=== PATIENT | male | born 1970 | race African-American/Black ===

== ENCOUNTER 2016-10-21 18:11 | Inpatient (IN) | payer MEDICAID ==
[~2016-10-21] VITALS: Ht 177.8 cm; Wt 115.9 kg
--- NOTE | 2016-10-21 18:49 | ERA ---
ER Documentation Chief Complaint Date/Time DATE: 10/21/16 TIME: 18:48 Chief Complaint sent by pcp -pain on both lower extremities- for blood clots HPI 46-year-old male with history of diabetes, hypertension and pneumonia ambulatory to the ED complaining of increasing pain and swelling to left greater than right lower extremity since discharge from [facility] approximately a month ago where he was treated for pneumonia. Pain is moderate , pressure-like, sharp, nonradiating and exacerbated by walking and movement. No relieving factors. Patient was seen by Dr. Mann and referred to the ED for evaluation and management of DVT to the left lower extremity. He requested that after evaluation, if indicated, patient be admitted to Dr. Natalya Ulrich. Patient denies chest pain or palpitations. No shortness of breath, cough or hemoptysis. Exertional dyspnea but no PND or orthopnea. Denies abdominal pain, nausea or vomiting. No dysuria or polyuria. No skin bruising or ecchymoses. No fevers or chills. ROS All systems reviewed and are negative except as per history of present illness. Medications Home Meds Reported Medications Ferrous Sulfate* (Ferrous Sulfate*) 325 Mg Tabec, 325 MG PO DAILY, TAB 10/21/16 Insulin Glargine* (Lantus*) 100 Unit/Ml Soln, 25 UNIT SC QHS, #1 VIAL 10/21/16 Lisinopril* (Lisinopril*) 20 Mg Tablet, 20 MG PO DAILY, #30 TAB 10/21/16 Aspirin* (Aspirin* EC) 81 Mg Tablet.dr, 81 MG PO DAILY, TAB 10/21/16 Carvedilol* (Carvedilol*) 12.5 Mg Tablet, 12.5 MG PO BID, #60 TAB 10/21/16 Folic Acid* (Folic Acid*) 1 Mg Tablet, 1 MG PO DAILY, TAB 10/21/16 Citalopram Hydrobromide* (Celexa*) 20 Mg Tablet, 20 MG PO DAILY, #30 TAB 10/21/16 Gabapentin* (Gabapentin*) 600 Mg Tablet, 600 MG PO TID, #90 TAB 10/21/16 Allergies Allergies: Coded Allergies: No Known Allergy (Unverified , 10/22/16) PMhx/Soc Reviewed in chart. As per HPI. Hx Neurological Disorder: No Hx Respiratory Disorders: Yes (Pneumonia) Hx Cardiac Disorders: Yes (Hypertension) Hx Psychiatric Problems: No Hx Alcohol Use: Yes Hx Substance Use: No Hx Tobacco Use: Yes Smoking Status: Current every day smoker FmHx No stroke or cancer Physical Exam Vitals Vital Signs Date Time Temp Pulse Resp B/P Pulse Ox O2 Delivery O2 Flow Rate FiO2 10/21/16 19:56 84 20 178/100 10/21/16 19:00 98.2 88 22 186/102 10/21/16 18:22 98.5 90 19 178/93 98 Physical Exam Const: Alert, mild distress due to pain. Head: Atraumatic Eyes: Normal Conjunctiva ENT: Normal External Ears, Nose and Mouth. Neck: Full range of motion.Nontender. No JVD. Resp: Clear to auscultation bilaterally Cardio: Regular rate and rhythm, no murmurs Abd: Soft, non tender, non distended. Normal bowel sounds. Obese. Skin: No petechiae or rashes Back: No midline or flank tenderness Ext: Left greater than right lower extremity edema and calf tenderness. Neur: Awake and alert. No focal deficit observed. Psych: Normal Mood and Affect Result Diagram: 10/23/16 0512 10/23/16 0512 Results 24 hrs Laboratory Tests Test 10/21/16 19:40 10/21/16 21:04 White Blood Count 8.310^3/ul Red Blood Count 2.7510^6/ul Hemoglobin 8.0g/dl Hematocrit 26.3% Mean Corpuscular Volume 95.6fl Mean Corpuscular Hemoglobin 29.1pg Mean Corpuscular Hemoglobin Concent 30.4g/dl Red Cell Distribution Width 13.3% Platelet Count 74139^3/UL Mean Platelet Volume 8.4fl Neutrophils % 57.4% Lymphocytes % 34.1% Monocytes % 6.2% Eosinophils % 1.3% Basophils % 0.5% Nucleated Red Blood Cells % 0.0/100WBC Neutrophils # 4.810^3/ul Lymphocytes # 2.810^3/ul Monocytes # 0.510^3/ul Eosinophils # 0.110^3/ul Basophils # 0.010^3/ul Nucleated Red Blood Cells # 0.010^3/ul Prothrombin Time 12.6Sec Prothrombin Time Ratio 1.0 INR International Normalized Ratio 0.94 Activated Partial Thromboplast Time 30.8Sec Sodium Level 138mmol/L Potassium Level 4.8mmol/L Chloride Level 107mmol/L Carbon Dioxide Level 27mmol/L Anion Gap 9 Blood Urea Nitrogen 23mg/dl Creatinine 2.25mg/dl Glucose Level 190mg/dl Calcium Level 7.7mg/dl Total Bilirubin 0.1mg/dl Direct Bilirubin 0.00mg/dl Indirect Bilirubin 0.1mg/dl Aspartate Amino Transf (AST/SGOT) 26IU/L Alanine Aminotransferase (ALT/SGPT) 26IU/L Alkaline Phosphatase 140IU/L Total Protein 5.1g/dl Albumin 2.2g/dl Globulin 2.90g/dl Albumin/Globulin Ratio 0.75 Bedside Glucose 170mg/dL Current Medications Medications (Trade) Dose Ordered Sig/Kavon Route PRN Reason Start Time Stop Time Status Last Admin Dose Admin Hydromorphone HCl (Dilaudid) 1 mg ONCE STAT IV 10/21/16 19:26 10/21/16 19:27 DC 10/21/16 19:45 Furosemide (Lasix) 40 mg ONCE ONCE IV 10/21/16 21:00 10/21/16 21:01 DC 10/21/16 22:13 Amlodipine Besylate (Norvasc) 10 mg DAILY PO 10/21/16 21:30 10/23/16 08:09 Hydralazine HCl (Apresoline) 10 mg Q4H PRN IV SBP>150 mm Hg 10/21/16 21:30 10/22/16 00:29 IV Flush (NS 3 ml) 3 ml PER PROTOCOL IV 10/21/16 21:30 Ondansetron HCl (Zofran Inj) 4 mg Q4H PRN IV NAUSEA AND/OR VOMITING 10/21/16 21:30 Acetaminophen (Tylenol Tab) 650 mg Q6H PRN PO PAIN LEVEL 1-3 OR FEVER 10/21/16 21:30 Acetaminophen/ Hydrocodone Bitart ([place] (5/325)) 1 tab Q6H PRN PO MODERATE PAIN LEVEL 4-6 10/21/16 21:30 Hydromorphone HCl (Dilaudid) 1 mg Q4H PRN IV SEVERE PAIN LEVEL 7-10 10/21/16 21:30 10/23/16 08:15 Docusate Sodium (Colace) 100 mg Q12H PRN PO CONSTIPATION 10/21/16 21:30 Magnesium Hydroxide (Milk Of Mag) 30 ml DAILY PRN PO CONSTIPATION 10/21/16 21:30 Bisacodyl (Dulcolax) 5 mg DAILY PRN PO CONSTIPATION 10/21/16 21:30 Bisacodyl (Dulcolax Supp) 10 mg DAILY PRN MS CONSTIPATION 10/21/16 21:30 Sodium Biphosphate/ Sodium Phosphate (Fleet Enema) 133 ml DAILY PRN MS CONSTIPATION 10/21/16 21:30 Zolpidem Tartrate (Ambien) 5 mg QHS PRN PO SLEEP 10/21/16 21:30 Miscellaneous Information (* Miscellaneous Pharmacy Order) HYPOGLYCEMIA PROTOCOL w... ONCE ONCE XX 10/21/16 21:30 10/21/16 22:23 DC Miscellaneous Information (* Miscellaneous Pharmacy Order) Discontinue Glyburide, Glipizide,... ONCE ONCE XX 10/21/16 21:30 10/21/16 22:23 DC Miscellaneous Information (* Miscellaneous Pharmacy Order) Discontinue all previ... ONCE ONCE XX 10/21/16 21:30 10/21/16 22:23 DC Albuterol/ Ipratropium (Duoneb) 3 ml Q2H RESP THERAPY PRN HHN SHORTNESS OF BREATH 10/21/16 21:30 EKG: TIME: 20:01. Sinus rhythm. Ventricular rate 84. Normal MS QRS. No acute ST-T wave changes. No ectopy. EP Interpretation: Normal EKG. IMAGING: PROCEDURE: US bilateral lower extremity veins. CLINICAL INDICATION: Bilateral leg pain and swelling. TECHNIQUE: Multiple longitudinal and transverse images of the bilateral lower extremity veins were obtained with king scale and color Doppler imaging. The common femoral vein, femoral vein, and popliteal vein were evaluated. 2D grayscale measurements with compression sonography, color Doppler, and pulsed Doppler with augmentation. COMPARISON: No prior studies are available for comparison. FINDINGS: The bilateral common femoral, femoral and popliteal veins are normally compressible throughout. Color flow demonstrates normal filling of the vessels. Normal waveforms are visualized and there is normal response to augmentation. There is thrombus in the left posterior tibial vein, a calf vein. IMPRESSION: 1. Thrombus in the left posterior tibial vein, a calf vein. 2. Otherwise normal deep venous system of both lower extremities. 3. Follow-up left lower extremity venous Doppler in 5 days is advised to evaluate for potential cephalad propagation of thrombus. RPTAT: QQ .Helder Lopez MD, Date Time Electronically viewed and signed by .Helder Lopez MD, on 10/21/2016 19:42 .R/ PROCEDURE: XR Chest. CLINICAL INDICATION: Shortness of breath. TECHNIQUE: Single frontal view. COMPARISON: None. FINDINGS: The lungs are clear. The heart size is normal. There is no pleural effusion. There is no pneumothorax. IMPRESSION: 1. Normal chest radiograph. RPTAT: QQ .Helder Lopez MD, Date Time Electronically viewed and signed by .Helder Lopez MD, on 10/21/2016 19:14 .R/ Procedures/MDM DOCUMENTS REVIEWED: ED nurse, no prior records MED[employer] DECISION MAKIN-year-old male with history of diabetes, hypertension and pneumonia ambulatory to the ED complaining of increasing pain and swelling to left greater than right lower extremity since discharge from [facility] approximately a month ago where he was treated for pneumonia. 2+ lower extremity edema and acute renal failure but chest x-ray is unremarkable. CHF considered. Hypertensive emergency. Anemia without active bleeding. Dupplex reveal a thrombus in the left posterior tibial vein. Diuretics initiated. Admit to med/surg for further evaluation and management. Counseled patient regarding diagnosis, diagnostic results and plan for admission. CALLS/CONSULTS: Time 21:00, Dr. Darya Ulrich , Recommends admission to med/surg. PATIENT CARE TRANSITIONED: Time: 21:45, Dr.K Ulrcih. Departure Diagnosis: Primary Impression: Lower extremity edema Qualified Code: R60.0 - Bilateral edema of lower extremity Additional Impressions: Lower extremity pain Qualified Code: M79.604 - Pain in both lower extremities Hypertensive emergency Acute renal failure Qualified Code: N17.9 - Acute renal failure, unspecified acute renal failure type Diabetes mellitus type 2 in obese Acute deep vein thrombosis (DVT) Qualified Code: I82.402 - Acute deep vein thrombosis (DVT) of left lower extremity, unspecified vein Condition: Serious BRISEIDA FONTENOT MD Oct 21, 2016 18:49 common femoral vein, femoral vein, and popliteal vein were evaluated. 2D grayscale measurements with compression sonography, color Doppler, and pulsed Doppler with augmentation. COMPARISON: No prior studies are available for comparison. FINDINGS: The bilateral common femoral, femoral and popliteal veins are normally compressible throughout. Color flow demonstrates normal filling of the vessels. Normal waveforms are visualized and there is normal response to augmentation. There is thrombus in the left posterior tibial vein, a calf vein. IMPRESSION: 1. Thrombus in the left posterior tibial vein, a calf vein. 2. Otherwise normal deep venous system of both lower extremities. 3. Follow-up left lower extremity venous Doppler in 5 days is advised to evaluate for potential cephalad propagation of thrombus. RPTAT: QQ .Helder Lopez MD, Date Time Electronically viewed and signed by .Helder Lopez MD, MD on 10/21/2016 19:42 .R/ PROCEDURE: XR Chest. CLINICAL INDICATION: Shortness of breath. TECHNIQUE: Single frontal view. COMPARISON: None. FINDINGS: The lungs are clear. The heart size is normal. There is no pleural effusion. There is no pneumothorax. IMPRESSION: 1. Normal chest radiograph. RPTAT: QQ .Helder Lopez MD, Date Time Electronically viewed and signed by .Helder Lopez MD, on 10/21/2016 19:14 .R/ Procedures/MDM DOCUMENTS REVIEWED: ED nurse, no prior records PROCEDURES: [] ED COURSE: [] REEXAMINATION/REEVALUATION: Time:[] MEDICAL DECISION MAKIN-year-old male with history of diabetes, hypertension and pneumonia ambulatory to the ED complaining of increasing pain and swelling to left greater than right lower extremity since discharge from [facility] approximately a month ago where he was treated for pneumonia. Counseled [patient and family] regarding diagnosis, diagnostic results and plan for admission. CALLS/CONSULTS: Time[], [], Recommends []. PATIENT CARE TRANSITIONED: Time: []Dr. []. Departure Diagnosis: Primary Impression: Acute deep vein thrombosis (DVT) BRISEIDA FONTENOT MD Oct 21, 2016 18:49
--- NOTE | 2016-10-21 19:15 | RADRPT ---
PROCEDURE: XR Chest. CLINICAL INDICATION: Shortness of breath. TECHNIQUE: Single frontal view. COMPARISON: None. FINDINGS: The lungs are clear. The heart size is normal. There is no pleural effusion. There is no pneumothorax. IMPRESSION: 1. Normal chest radiograph. RPTAT: QQ .Helder Lopez MD, MD Date Time Electronically viewed and signed by .Helder Lopez MD, on 10/21/2016 19:14 .R/
[2016-10-21] MEDS ORDERED: HYDROmorphONE 1 MG/ML SYG IV STA (19:26)
--- NOTE | 2016-10-21 19:42 | RADRPT ---
PROCEDURE: US bilateral lower extremity veins. CLINICAL INDICATION: Bilateral leg pain and swelling. TECHNIQUE: Multiple longitudinal and transverse images of the bilateral lower extremity veins were obtained with king scale and color Doppler imaging. The common femoral vein, femoral vein, and popl iteal vein were evaluated. 2D grayscale measurements with compression sonography, color Doppler, and pulsed Doppler with augmentation. COMPARISON: No prior studies are available for comparison. FINDINGS: The bilateral common femoral, femoral and popliteal veins are normally compressible throughout. Col or flow demonstrates normal filling of the vessels. Normal waveforms are visualized and there is no rmal response to augmentation. There is thrombus in the left posterior tibial vein, a calf vein. IMPRESSION: 1. Thrombus in the left posterior tibial vein, a calf vein. 2. Otherwise normal deep venous system of both lower extremities. 3. Follow-up left lower extremity venous Doppler in 5 days is advised to evaluate for potential cep halad propagation of thrombus. RPTAT: QQ .Helder Lopez MD, MD Date Time Electronically viewed and signed by .Helder Lopez MD, on 10/21/2016 19:42 .R/
[2016-10-21 19:48] LABS: ADD SCAN DIFF NO
[2016-10-21 19:51] LABS: BASOPHILS % 0.5 % (0.0-2.0); EOSINOPHILS # 0.1 10^3/ul (0.0-0.5); EOSINOPHILS % 1.3 % (0.0-7.0); HEMATOCRIT 26.3 % (42.0-52.0); LYMPHOCYTES # 2.8 10^3/ul (0.8-2.9); LYMPHOCYTES % 34.1 % (15.0-51.0); MEAN CORPUSCULAR HEMOGLOBIN 29.1 pg (29.0-33.0); MEAN CORPUSCULAR HGB CONC 30.4 g/dl (32.0-37.0); MEAN CORPUSCULAR VOLUME 95.6 fl (82.0-101.0); MEAN PLATELET VOLUME 8.4 fl (7.4-10.4); MONOCYTE # 0.5 10^3/ul (0.3-0.9); MONOCYTES % 6.2 % (0.0-11.0); NEUTROPHIL # 4.8 10^3/ul (1.6-7.5); NEUTROPHILS % 57.4 % (39.0-77.0); PLATELET COUNT 329 10^3/UL (140-415); RED BLOOD COUNT 2.75 10^6/ul (4.70-6.10); RED CELL DISTRIBUTION WIDTH 13.3 % (11.5-14.5); WHITE BLOOD COUNT 8.3 10^3/ul (4.8-10.8)
[2016-10-21 20:03] LABS: INR 0.94; PROTIME 12.6 Sec (12.2-14.2)
[2016-10-21 20:04] LABS: PARTIAL THROMBOPLASTIN TIME 30.8 Sec (25.0-35.0)
[2016-10-21 20:17] LABS: ALBUMIN 2.2 g/dl (3.3-4.9)
[2016-10-21 20:18] LABS: POTASSIUM 4.8 mmol/L (3.5-5.1)
[2016-10-21 20:20] LABS: BILIRUBIN,INDIRECT 0.1 mg/dl (0-1.1); BILIRUBIN,TOTAL 0.1 mg/dl (0.2-1.3); CREATININE 2.25 mg/dl (0.61-1.24)
[2016-10-21 20:21] LABS: ALBUMIN/GLOBULIN RATIO 0.75; CALCIUM 7.7 mg/dl (8.4-10.2); TOTAL PROTEIN 5.1 g/dl (6.1-8.1)
[2016-10-21] MEDS ORDERED: CITA20TA11 PO (20:43)
[2016-10-21] MEDS ORDERED: GABA-526 PO (20:43)
[2016-10-21] MEDS ORDERED: ASPI-664 PO (20:44)
[2016-10-21] MEDS ORDERED: FOLI-49 PO (20:44)
[2016-10-21] MEDS ORDERED: CARV12.579 PO (20:44)
[2016-10-21] MEDS ORDERED: LANT3I SC (20:45)
[2016-10-21] MEDS ORDERED: LISI20TA11 PO (20:45)
[2016-10-21] MEDS ORDERED: FER325 PO (20:48)
[2016-10-21] MEDS ORDERED: FUROSEMIDE 40 MG INJ IV ONE (21:00)
[2016-10-21] MEDS ORDERED: ACETAMINOPHEN 325 MG TAB PO PRN ×2 (21:30→22:30)
[2016-10-21] MEDS ORDERED: BISACODYL (EC) 5 MG TAB PO PRN (21:30)
[2016-10-21] MEDS ORDERED: NA PHOSPHATE/BIPHOS 133 ML ENEMA PR PRN (21:30)
[2016-10-21] MEDS ORDERED: BISACODYL 10 MG SUPP PR PRN (21:30)
[2016-10-21] MEDS ORDERED: MAGNESIUM HYDROXIDE 30ML CUP PO PRN (21:30)
[2016-10-21] MEDS ORDERED: ALBUTEROL/IPRATROPIUM (NEB) 3 ML AMP HHN PRN (21:30)
[2016-10-21] MEDS ORDERED: NACL 0.9% 3 ML SYG IV SCH (21:30)
[2016-10-21] MEDS ORDERED: ONDANSETRON 4 MG INJ IV PRN ×2 (21:30→22:30)
[2016-10-21] MEDS ORDERED: ZOLPIDEM 5 MG TAB PO PRN (21:30)
--- NOTE | 2016-10-21 22:20 | RADRPT ---
PROCEDURE: Renal US. CLINICAL INDICATION: Acute renal failure. TECHNIQUE: Multiple sonographic images of the kidneys and urinary bladder were obtained. The imag es were reviewed on a PACS workstation. COMPARISON: No prior studies are available for comparison. FINDINGS: The kidneys are well visualized. The right kidney measures 10.9 cm. The left kidney measures 9.6 cm. The kidneys are echogenic. There is no evidence for obstructive uropathy. The urinary bladder is no rmal in appearance. IMPRESSION: 1. Echogenic kidneys, suggestive of medical renal disease. 2. No hydronephrosis. 3. Normal appearance of the urinary bladder. RPTAT: HTAR .Ha Heard MD, Date Time Electronically viewed and signed by .Ha Heard MD, on 10/21/2016 22:20 .R/
[2016-10-21] MEDS: INSULIN GLARGINE [LANtus] 3 ML PEN SC SCH (22:30)
[2016-10-21] MEDS: AMLODIPINE 10 MG TAB PO SCH (22:37)
[2016-10-21] MEDS: GABAPENTIN 300 MG CAP PO SCH (22:38)
[2016-10-21] MEDS: HEPARIN 5,000 UNIT/0.5 ML SYG SC SCH (22:38)
[2016-10-21 23:38] VITALS: TEMP 98.1
[2016-10-22 00:03] VITALS: Ht 177.8 cm; Wt 115.9 kg
[2016-10-22 00:06] VITALS: BP 181/97; RESP 16
[2016-10-22] MEDS: hydrALAzine 20 MG INJ IV PRN (00:29)
[2016-10-22 00:54] VITALS: BP 164/90; PULSE 77
[2016-10-22 04:09] VITALS: BP 158/72; PULSE 78
[2016-10-22] MEDS: HYDROmorphONE 1 MG/ML SYG IV PRN ×2 (05:42→18:51)
[2016-10-22] MEDS: FUROSEMIDE 20 MG INJ IV SCH ×2 (05:44→18:06)
[2016-10-22 06:27] LABS: ADD SCAN DIFF NO
[2016-10-22 06:41] LABS: BASOPHILS % 0.7 % (0.0-2.0); EOSINOPHILS # 0.1 10^3/ul (0.0-0.5); EOSINOPHILS % 1.7 % (0.0-7.0); HEMATOCRIT 26.4 % (42.0-52.0); HEMOGLOBIN 7.9 g/dl (14.0-18.0); LYMPHOCYTES # 2.3 10^3/ul (0.8-2.9); LYMPHOCYTES % 39.6 % (15.0-51.0); MEAN CORPUSCULAR HEMOGLOBIN 28.6 pg (29.0-33.0); MEAN CORPUSCULAR HGB CONC 29.9 g/dl (32.0-37.0); MEAN CORPUSCULAR VOLUME 95.7 fl (82.0-101.0); MEAN PLATELET VOLUME 8.9 fl (7.4-10.4); MONOCYTE # 0.4 10^3/ul (0.3-0.9); MONOCYTES % 6.9 % (0.0-11.0); NEUTROPHIL # 2.9 10^3/ul (1.6-7.5); NEUTROPHILS % 50.9 % (39.0-77.0); PLATELET COUNT 339 10^3/UL (140-415); RED BLOOD COUNT 2.76 10^6/ul (4.70-6.10); RED CELL DISTRIBUTION WIDTH 13.3 % (11.5-14.5); WHITE BLOOD COUNT 5.8 10^3/ul (4.8-10.8)
[2016-10-22 07:14] LABS: POTASSIUM 4.8 mmol/L (3.5-5.1)
[2016-10-22 07:15] LABS: CREATININE 2.19 mg/dl (0.61-1.24)
[2016-10-22 07:16] LABS: ALBUMIN/GLOBULIN RATIO 0.74; BILIRUBIN,INDIRECT 0.2 mg/dl (0-1.1); BILIRUBIN,TOTAL 0.2 mg/dl (0.2-1.3); CALCIUM 7.8 mg/dl (8.4-10.2); TOTAL PROTEIN 4.7 g/dl (6.1-8.1)
[2016-10-22 07:17] LABS: CHOL/HDL RATIO 5.7 RATIO; MAGNESIUM 1.6 mg/dl (1.7-2.5)
[2016-10-22 07:27] VITALS: BP 148/74; RESP 16
[2016-10-22] MEDS: CITALOPRAM 20 MG TAB PO SCH (08:32)
[2016-10-22] MEDS: ASPIRIN (EC) 81 MG TAB PO SCH (08:32)
[2016-10-22] MEDS: GABAPENTIN 300 MG CAP PO SCH ×3 (08:32→21:08)
[2016-10-22] MEDS: FOLIC ACID 1 MG TAB PO SCH (08:32)
[2016-10-22] MEDS: FERROUS SULFATE (EC) 325 MG TAB PO SCH (08:32)
[2016-10-22] MEDS: AMLODIPINE 10 MG TAB PO SCH (08:34)
[2016-10-22] MEDS: HEPARIN 5,000 UNIT/0.5 ML SYG SC SCH ×2 (08:46→21:18)
[2016-10-22] MEDS ORDERED: FAMOTIDINE 20 MG INJ IV SCH (09:00)
[2016-10-22] MEDS: INSULIN ASPART [NOVOLOG] 3 ML PEN SC SCH ×4 (09:02→21:17)
[2016-10-22 10:54] LABS: RETICULOCYTE COUNT % 2.8 % (0.5-1.5)
[2016-10-22 11:04] LABS: CREATINE KINASE 111 IU/L (23-200); URIC ACID 7.2 mg/dl (3.1-7.9)
[2016-10-22 11:10] LABS: IRON 35 ug/dl (35-150)
[2016-10-22 11:20] LABS: TOTAL IRON BINDING CAPACITY 162 ug/dl (241-421)
[2016-10-22 12:17] LABS: FOLATE > 20.0 ng/ml (2.8-20.0)
[2016-10-22 12:45] LABS: PROTEIN URINE > 200.0 mg/dl (0.0-9.9); PROTEIN/CREAT RATIO 3.46 RATIO
--- NOTE | 2016-10-22 15:52 | HP ---
DATE OF ADMISSION: 10/21/2016 CHIEF COMPLAINT: Bilateral lower extremity pain with history of DVT. HISTORY OF PRESENT ILLNESS: The patient is a very pleasant 46-year-old male with p ast medical history positive for hypertension, diabetes, hyperlipidemia. The patient was following with Dr. Garcia, vaccine customer representative, and was found to have elevated systolic blood pressure in 200s and als o elevated creatinine. Patient complained of bilateral lower extremities edema and pain. The patie nt was sent to [facility]. The patient complains of a pressure-lik e, sharp, nonradiating pain in bilateral lower extremity exacerbated by walking and movement. The abhishek queen also had a history of pneumonia and was [place] [facility] stated that he completed treatment for pneumonia. The patient also stated that he is diabetic and he takes Lantus, does not remember to exact dose and Humalog per sliding scale. The patient stated that he h as been compliant with his medications. In the emergency room, patient underwent bilateral lower ex tremity ultrasound which revealed thrombus in the left posterior tibial vein, otherwise, normal deep venous system of both lower extremities. Follow up left lower extremity venous Doppler in 5 days i s advised to evaluate for potential ____ propagation of thrombus. Patient was getting Dilaudid, [place] with some improvement in symptoms. The patient also noted to have blood pressure 186/102 on admi ssion. The patient was admitted for further evaluation and management to medical/surgical floor. Abhishek queen denies any fever or chills. Denies any nausea, vomiting. Patient denies any cough. Denies any sore throat. Denies dysuria; however, patient stated that his creatinine has been elevated abou t 2. PAST MEDICAL HISTORY: Per HPI. PAST SURGICAL HISTORY: Patient denies having any surgeries in the past. SOCIAL HISTORY: Patient denies any tobacco use, denies any alcohol use, denies any illicit drug use . FAMILY HISTORY: Noncontributory. ALLERGIES: NO KNOWN ALLERGIES. MEDICATIONS ON ADMISSION: Include: 1. Ferrous sulfate. 2. Lantus. 3. Lisinopril. 4. Aspirin. 5. Coreg. 6. Folic acid. 7. Celexa. 8. Gabapentin. REVIEW OF SYSTEMS: A 12-point review of systems is negative unless what mentioned in the HPI. PHYSICAL ASSESSMENT: GENERAL: Well-developed, obese male currently is awake, alert. VITAL SIGNS: Temperature is 98.1, pulse is 82, blood pressure is 148/74, respiratory rate 16, oxyge n saturation is 98% on room air. HEENT: Head is atraumatic, normocephalic. Pupils equal, round, reactive to light and accommodation . Oral mucosa is pink and moist. NECK: Supple, no cervical lymphadenopathy, no thyromegaly. CHEST: Lungs clear bilaterally. There is no rhonchi, wheezes, rales noted. CARDIOVASCULAR: Normal S1, S2. No murmurs, gallops, clicks, rubs noted. ABDOMEN: Round, soft, nondistended, nontender. Bowel sounds present. There is no guarding or rebo und tenderness. EXTREMITIES: The patient has bilateral lower extremities edema, 2+. The patient also has a left an terior foot intact blister. No rash, petechiae noted. NEUROLOGIC: Patient is awake, alert and oriented. SKIN: There is no rash, petechiae noted. NEUROLOGIC: The patient is awake, alert and oriented x4. No focal deficits noted. Motor strength 5/5 in all extremities. LABORATORY DATA: On admission, CBC: White blood cells 8.3, hemoglobin 8.0, hematocrit 26.3, platel ets 329. Chemistry: Sodium is 138, potassium 4.8, chloride 107, carbon dioxide 27, anion gap 9, BU N is 26, creatinine 2.23, glucose 190. ASSESSMENT AND PLAN: 1. Bilateral lower extremities edema. We will obtain a 2D echo and evaluation of patient's ejectio n fraction. Dr. Casey will be following patient in cardiology consultation. 2. Left posterior tibial vein thrombus. Continue warm compress. We will continue heparin. We will reevaluate left lower extremity ultrasound in 5 days. 3. Accelerated hypertension. Continue patient on Coreg, Norvasc, hydralazine. 4. Diabetes mellitus type 2. Continue 1800 ADA 2 g sodium, low fat, low cholesterol diet. Continu e Lantus and NovoLog per moderate algorithm sliding scale. We will obtain hemoglobin A1c. 5. Acute kidney injury on chronic kidney disease. Dr. Ulrich is following in nephrology consultatio n. 6. Obesity. Weight loss advised. 7. Iron deficiency anemia. Continue iron supplements. 8. We will continue heparin, follow deep venous thrombosis prophylaxis and Pepcid for peptic ulcer disease prophylaxis. Further recommendations based on clinical course. Plan of care discussed with Dr. Valiente. Dictated By: NI PADRON ADULT EDUCATION PROFESSIONAL for IKE VALIENTE MD SR/NTS Conf#: [id number] DID#: [id number]
--- NOTE | 2016-10-22 16:08 | PN ---
Date/Time of Note Date/Time of Note DATE: 10/22/16 TIME: 16:06 Assessment/Plan VTE Prophylaxis VTE Prophylaxis Intervention: heparin Lines/Catheters IV Catheter Type (from [facility]): [place] [facility] Assessment/Plan Assessment/Plan 1. Anasarca, likely secondary to worsening renal failure. 2. Acute kidney injury on chronic kidney disease secondary to prerenal azotemia and worsening diabetes mellitus. 3. Superficial vein thrombosis in left posterior tibial vein. 4. History of diabetes mellitus. 5. Hypertension with currently having accelerated hypertension, systolic blood pressure 186/103. PLAN: lasix 20mg IV BID Renal US Cardiology consulted on the case will follow up Exam/Review of Systems Vital Signs Vitals Vital Signs Date Time Temp Pulse Resp B/P Pulse Ox O2 Delivery O2 Flow Rate FiO2 10/22/16 07:27 98.0 80 16 148/74 98 Intake and Output 10/21/16 10/21/16 10/22/16 15:00 23:00 07:00 Intake Total 820 ml Output Total 1750 ml Balance -930 ml Exam GENERAL: Awake, alert, in moderate distress due to the lower extremity edema and shortness of breath. HEENT: Normal. Pupils equal, round, reactive to light and accommodation. Extraocular muscles are intact. NECK: Supple, no JVD, no lymphadenopathy. LUNGS: Clear to auscultation. No crackles, no wheezes. HEART: S1, S2, with regular rhythm, no murmur. ABDOMEN: Soft, nontender, nondistended. Bowel sounds are present. EXTREMITIES: 2+ pitting edema. No clubbing, no cyanosis. NEUROLOGICAL: Cranial nerves II through XII intact. No focal deficits. PSYCHIATRIC: Appropriate affect and mood. Results Result Diagram: 10/22/16 0600 10/22/16 0600 Results 24 hrs Laboratory Tests Test 10/21/16 19:40 10/21/16 21:04 10/22/16 00:13 10/22/16 06:00 White Blood Count 8.3 5.8 # Red Blood Count 2.75 L 2.76 L Hemoglobin 8.0 L 7.9 L Hematocrit 26.3 L 26.4 L Mean Corpuscular Volume 95.6 95.7 Mean Corpuscular Hemoglobin 29.1 28.6 L Mean Corpuscular Hemoglobin Concent 30.4 L 29.9 L Red Cell Distribution Width 13.3 13.3 Platelet Count 329 339 Mean Platelet Volume 8.4 8.9 Neutrophils % 57.4 50.9 Lymphocytes % 34.1 39.6 Monocytes % 6.2 6.9 Eosinophils % 1.3 1.7 Basophils % 0.5 0.7 Nucleated Red Blood Cells % 0.0 0.0 Neutrophils # 4.8 2.9 Lymphocytes # 2.8 2.3 Monocytes # 0.5 0.4 Eosinophils # 0.1 0.1 Basophils # 0.0 0.0 Nucleated Red Blood Cells # 0.0 0.0 Prothrombin Time 12.6 Prothrombin Time Ratio 1.0 INR International Normalized Ratio 0.94 Activated Partial Thromboplast Time 30.8 Sodium Level 138 140 Potassium Level 4.8 4.8 Chloride Level 107 108 Carbon Dioxide Level 27 28 Anion Gap 9 9 Blood Urea Nitrogen 23 H 22 H Creatinine 2.25 H 2.19 H Glucose Level 190 171 Calcium Level 7.7 L 7.8 L Total Bilirubin 0.1 L 0.2 Direct Bilirubin 0.00 0.00 Indirect Bilirubin 0.1 0.2 Aspartate Amino Transf (AST/SGOT) 26 24 Alanine Aminotransferase (ALT/SGPT) 26 23 Alkaline Phosphatase 140 H 120 Total Protein 5.1 L 4.7 L Albumin 2.2 L 2.0 L Globulin 2.90 2.70 Albumin/Globulin Ratio 0.75 0.74 Bedside Glucose 170 152 Hemoglobin A1c 6.6 H Magnesium Level 1.6 L Triglycerides Level 114 Cholesterol Level 318 H LDL Cholesterol, Calculated 240 HDL Cholesterol 55 Cholesterol/HDL Ratio 5.7 Test 10/22/16 07:57 10/22/16 10:06 10/22/16 10:15 10/22/16 11:48 Bedside Glucose 213 183 Absolute Reticulocyte Count 0.073 Percent Reticulocyte Count 2.8 H Uric Acid 7.2 Iron Level 35 Total Iron Binding Capacity 162 L Percent Iron Saturation 22 Ferritin 372.0 Creatine Kinase 111 Vitamin B12 Level 303 Folate > 20.0 H Parathyroid Hormone (Intact) Urine Eosinophils % 7.0 H Urine Random Creatinine 57.70 Urine Random Sodium 114 H Urine Protein/Creatinine Ratio 3.46 Urine Total Protein > 200.0 H Medications Medications Current Medications Aspirin (Halfprin) 81 mg DAILY PO Last administered on 10/22/16t 08:32; Admin Dose 81 MG; Start 10/22/16 at 09:00 Carvedilol (Coreg) 12.5 mg BID PO Last administered on 10/22/16 08:33; Admin Dose 12.5 MG; Start 10/21/16 at 22:30 Citalopram Hydrobromide (Celexa) 20 mg DAILY PO Last administered on 10/22/16 08:32; Admin Dose 20 MG; Start 10/22/16 at 09:00 Ferrous Sulfate (Ferrous Sulfate (Ec)) 325 mg DAILY PO Last administered on 08:32; Admin Dose 325 MG; Start 10/22/16 at 09:00 Folic Acid (Folic Acid) 1 mg DAILY PO Last administered on 10/22/16 08:32; Admin Dose 1 MG; Start 10/22/16 at 09:00 Gabapentin (Neurontin) 600 mg TID PO Last administered on 10/22/16 12:20; Admin Dose 600 MG; Start 10/21/16 at 22:30 Amlodipine Besylate (Norvasc) 10 mg DAILY PO Last administered on 10/22/16 08: 34; Admin Dose 10 MG; Start 10/21/16 at 21:30 Hydralazine HCl (Apresoline) 10 mg Q4H PRN IV SBP>150 mm Hg Last administered on 10/22/16 00:29; Admin Dose 10 MG; Start 10/21/16 at 21:30 Insulin Glargine (Lantus) 10 unit QHS SC ; Start 10/21/16 at 22:30 Ondansetron HCl (Zofran Inj) 4 mg Q4H PRN IV NAUSEA AND/OR VOMITING; Start at 21:30 Acetaminophen (Tylenol Tab) 650 mg Q6H PRN PO PAIN LEVEL 1-3 OR FEVER; Start at 21:30 Acetaminophen/ Hydrocodone Bitart ([employer] (5/325)) 1 tab Q6H PRN PO MODERATE PAIN LEVEL 4-6; Start 10/21/16 at 21:30 Hydromorphone HCl (Dilaudid) 1 mg Q4H PRN IV SEVERE PAIN LEVEL 7-10 Last administered on 10/22/16 05:42; Admin Dose 1 MG; Start 10/21/16 at 21:30 Docusate Sodium (Colace) 100 mg Q12H PRN PO CONSTIPATION; Start 10/21/16 at 21: 30 Magnesium Hydroxide (Milk Of Mag) 30 ml DAILY PRN PO CONSTIPATION; Start at 21:30 Bisacodyl (Dulcolax) 5 mg DAILY PRN PO CONSTIPATION; Start 10/21/16 at 21:30 Bisacodyl (Dulcolax Supp) 10 mg DAILY PRN [place] CONSTIPATION; Start 10/21/16 at 21 :30 Sodium Biphosphate/ Sodium Phosphate (Fleet Enema) 133 ml DAILY PRN [place] CONSTIPATION; Start 10/21/16 at 21:30 Zolpidem Tartrate (Ambien) 5 mg QHS PRN PO SLEEP; Start 10/21/16 at 21:30 Heparin Sodium (Porcine) (Heparin (5000 Units/0.5 ml)) 5,000 unit Q12 SC Last administered on 10/22/16t 08:46; Admin Dose 5,000 UNIT; Start 10/21/16 at 22:30 Famotidine (Pepcid) 20 mg DAILY PO ; Start 10/23/16 at 09:00 EMILY OVIEDO MD Oct 22, 2016 16:08
[2016-10-22] MEDS ORDERED: MAGNESIUM SULFATE 1 GM/D5W 100 ML IVPB ONE (16:30)
--- NOTE | 2016-10-22 19:14 | CONS ---
DATE OF ADMISSION: 10/21/2016 DATE OF CONSULTATION: 10/22/2016 CARDIOLOGY CONSULTATION REASON FOR CONSULTATION: Hypertension, edema. REQUESTING PHYSICIAN: Ike Valiente MD HISTORY OF PRESENT ILLNESS: Mr. 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 The alisia parker subsequently was sent to the [facility] Emergency Department. Upon arrival, temperature 98.5, blood pressure markedly elevated at 178/93, pulse 90, respirations 19, saturating 98%. The patient's labs revealed white count 8.3, hemoglobin 8.0, platelet count 329. A sodium of 138, potassium 4.8, creatinine 2.25, BUN of 23, calcium 7.7, AST 26, ALT 26. INR 0.94. Urine sedim ent with positive protein. Patient does not have ____ the chart for my review at this time. The stella byrnes has been started on Carvedilol, aspirin, Lasix diuresis, Norvasc. Patient most recently jamar nues to have elevated systolic blood pressures but are slowly downtrending. The patient denies ches t pain, shortness of breath. PAST MEDICAL HISTORY: As above in HPI. MEDICATIONS CURRENTLY IN HOSPITAL: 1. Pepcid 20 mg daily. 2. Aspirin 81 mg daily. 3. Celexa. 4. Ferrous sulfate. 5. Folic acid. 6. ____ 7. Lasix 20 mg IV b.i.d. 8. Carvedilol 12.5 mg p.o. b.i.d. 9. Gabapentin 300 mg t.i.d. 10. Lantus 10 mg at bedtime. 11. Heparin 5000 subQ q.12. 12. Norvasc 10 mg daily. 13. Hydralazine 10 mg IV push p.r.n. 14. Zofran p.r.n. 15. Tylenol. 16. Puposky p.r.n. 17. Dilaudid p.r.n. 18. Dulcolax p.r.n. 19. Fleets enema p.r.n. ALLERGIES: NO KNOWN DRUG ALLERGIES. SOCIAL HISTORY: Remote tobacco, quit times multiple years. No ETOH, quit times multiple years. No illicit drug use. FAMILY HISTORY: Negative for sudden cardiac or early CAD. REVIEW OF SYSTEMS: As above in HPI. CONSTITUTIONAL: No fevers, chills. PULMONARY: No current shortness of breath. CARDIOVASCULAR: No current chest pain. GASTROINTESTINAL: No vomiting. GENITOURINARY: No hematuria. MUSCULOSKELETAL: Leg pain, leg swelling. PSYCHIATRIC: No documented psychiatric history. NEUROLOGIC: No documented history of CVA. PHYSICAL EXAMINATION: VITAL SIGNS: Temperature 98, blood pressure 148/74, pulse 80, respirations 16, saturating 98%. GENERAL: The patient is alert, awake, in no acute distress. NECK: JVP approximately 9 cm water. CHEST: Fair movement throughout with mildly decreased breath sounds at bases bilaterally. HEART: Regular rate and rhythm. Normal S1, S2, I/ systolic murmur, nondisplaced PMI. ABDOMEN: Positive bowel sounds, soft. EXTREMITIES: 2+ edema bilaterally, left greater than right, 1+ pulses bilaterally at the dorsalis p nicanor. LABORATORIES: As above in HPI, with most recent from today: White count 5.8, hemoglobin 7.9, plate let count 339. Sodium 140, potassium 4.8, creatinine 2.19, BUN 22. LDL 240, HDL 55. INR 0.94. IMAGING STUDIES: A venous ultrasound from the revealing thrombus in the left posterior tibial vein. A chest x-ray revealing no acute cardiopulmonary abnormalities and a renal ultrasound reveali ng echogenic kidneys consistent with medical renal disease. IMPRESSION: 1. Hypertensive urgency/emergency, slowly improving on oral antihypertensives. 2. Lower extremity edema, assess for congestive heart failure. 3. History of dyslipidemia. 4. Renal failure. 5. Diabetes mellitus. 6. Anemia. RECOMMENDATIONS: 1. At this time, would maintain patient on current antihypertensives with carvedilol and Norvasc wi th probable need for additional antihypertensives. At this time will use IV push p.r.n. hydralazine to improve systolic blood pressure control. 2. Continue the patient's Lasix diuresis. 3. Continue the patient's aspirin for prophylaxis against cardiovascular events. 4. Pain control. 5. We will follow up the patient's 2D echo done in the office. 6. Check a fasting lipid panel for general risk stratification and will complete a rule out for meli cardial infarction to ensure that the patient has not provoked any acute coronary syndrome in the se tting of hypertensive urgency emergency and will follow serial EKGs. Obtain EKG now, EKG in the mo rning, EKG for any complaints of chest pain or change in rhythm. Thank you for allowing me to take part in the care of this patient. I will continue to follow him quoc burns closely with you. Further recommendations to be made as the patient progresses through his [facility] clinical course. Dictated By: RAFFY SANTOS/DENEEN Conf#: [id number] DID#: [id number] CC: IKE VALIENTE MD;*EndCC*
[2016-10-22 19:40] VITALS: BP 152/86; RESP 20
[2016-10-22] MEDS ORDERED: INSULIN GLARGINE [LANtus] 3 ML PEN SC SCH (21:00)
[2016-10-22] MEDS: INSULIN GLARGINE [LANtus] 3 ML PEN SC SCH (22:27)
[2016-10-23 01:28] LABS: CK-MB 1.04 ng/ml (0.0-2.4); TROPONIN-I 0.016 ng/ml (0.00-0.12)
[2016-10-23 05:30] LABS: ADD SCAN DIFF NO
[2016-10-23 05:50] LABS: POTASSIUM 4.7 mmol/L (3.5-5.1)
[2016-10-23 05:53] LABS: CREATININE 2.31 mg/dl (0.61-1.24)
[2016-10-23 05:54] LABS: CALCIUM 7.9 mg/dl (8.4-10.2); CHOL/HDL RATIO 5.7 RATIO
[2016-10-23 05:58] LABS: BASOPHILS % 0.7 % (0.0-2.0); EOSINOPHILS # 0.1 10^3/ul (0.0-0.5); EOSINOPHILS % 2.2 % (0.0-7.0); HEMOGLOBIN 7.5 g/dl (14.0-18.0); LYMPHOCYTES # 3.3 10^3/ul (0.8-2.9); LYMPHOCYTES % 54.7 % (15.0-51.0); MEAN CORPUSCULAR HEMOGLOBIN 28.5 pg (29.0-33.0); MEAN CORPUSCULAR VOLUME 95.1 fl (82.0-101.0); MEAN PLATELET VOLUME 8.8 fl (7.4-10.4); MONOCYTE # 0.4 10^3/ul (0.3-0.9); MONOCYTES % 6.5 % (0.0-11.0); NEUTROPHIL # 2.1 10^3/ul (1.6-7.5); NEUTROPHILS % 35.6 % (39.0-77.0); PLATELET COUNT 334 10^3/UL (140-415); RED BLOOD COUNT 2.63 10^6/ul (4.70-6.10); RED CELL DISTRIBUTION WIDTH 12.9 % (11.5-14.5)
[2016-10-23 06:00] LABS: TROPONIN-I 0.013 ng/ml (0.00-0.12)
[2016-10-23] MEDS: FUROSEMIDE 20 MG INJ IV SCH ×2 (06:08→17:14)
[2016-10-23 06:11] LABS: CK-MB 1.01 ng/ml (0.0-2.4)
[2016-10-23 07:41] VITALS: BP 167/92; RESP 16
[2016-10-23] MEDS: INSULIN ASPART [NOVOLOG] 3 ML PEN SC SCH ×4 (07:47→21:02)
[2016-10-23] MEDS: GABAPENTIN 300 MG CAP PO SCH ×3 (08:07→20:50)
[2016-10-23] MEDS: FERROUS SULFATE (EC) 325 MG TAB PO SCH (08:08)
[2016-10-23] MEDS: CITALOPRAM 20 MG TAB PO SCH (08:08)
[2016-10-23] MEDS: ASPIRIN (EC) 81 MG TAB PO SCH (08:08)
[2016-10-23] MEDS: FOLIC ACID 1 MG TAB PO SCH (08:09)
[2016-10-23] MEDS: AMLODIPINE 10 MG TAB PO SCH (08:09)
[2016-10-23] MEDS: HYDROmorphONE 1 MG/ML SYG IV PRN ×3 (08:15→22:24)
[2016-10-23] MEDS: HEPARIN 5,000 UNIT/0.5 ML SYG SC SCH (08:23)
[2016-10-23] MEDS: FAMOTIDINE 20 MG TAB PO SCH (08:24)
--- NOTE | 2016-10-23 10:37 | RADRPT ---
Vent Rate: 70 bpm RR Interval: 0 msec OH Interval: 178 msec QRS Duration: 80 msec QT Interval: 428 msec QTC Interval: 462 msec P-R-T Rarden: 69 - 10 - 92 degrees Normal sinus rhythm Abnormal QRS-T angle, consider primary T wave abnormality Prolonged QT Abnormal ECG Electronically Signed By: Waqas Hernandez [id number]
--- NOTE | 2016-10-23 12:14 | CONS ---
Date/Time of Note Date/Time of Note DATE: 10/23/16 TIME: 12:10 Assessment/Plan Assessment/Plan Chief Complaint/Hosp Course IMPRESSION: 1. Hypertensive urgency/emergency, slowly improving on oral antihypertensives. 2. Lower extremity edema, assess for congestive heart failure.-NL EF/mild MR/TR /AZ/mild PHTN by echo in office 10/2016 3. History of dyslipidemia. 4. Renal failure. 5. Diabetes mellitus. 6. Anemia. Recc: -Continue coreg with slight increase -Continue norvasc with probable need for additional anti-hypertensives -Continue asa -Continue lasix and follow volume status and renal fxn closely Problems: Consultation Date/Type/Reason Admit Date/Time Oct 21, 2016 at 22:03 Initial Consult Date 10/22/2016 Type of Consultation: Cardiology Reason for Consultation HTN Referring Provider: IKE VALIENTE MD Exam/Review of Systems Vital Signs Vitals Vital Signs Date Time Temp Pulse Resp B/P Pulse Ox O2 Delivery O2 Flow Rate FiO2 10/23/16 07:41 98.2 70 16 167/92 100 Intake and Output 10/22/16 10/22/16 10/23/16 15:00 23:00 07:00 Intake Total 1060 ml 480 ml Output Total 1200 ml 500 ml Balance -140 ml -20 ml Exam Review of Systems: CONSTITUTIONAL: No fevers, chills. PULMONARY: No sob CARDIOVASCULAR: No chest pain/palpitations GASTROINTESTINAL: No nausea/vomiting. GENITOURINARY: No hematuria/dysuria. MUSCULOSKELETAL: No myagias/arthalgias. PSYCHIATRIC: The patient denies depression. NEUROLOGIC: No weakness Constitutional: alert Head: normocephalic ENMT: mucosa pink and moist Neck: jvd (9 cm water), supple Respiratory: diminished breath sounds (at bases/B) Cardiovascular: regular rate and rhythm Gastrointestinal: non-tender, soft Musculoskeletal: muscle tone (normal) Extremities: edema (trace/B) Neurological: other (No focal deficits) Results Result Diagram: 10/23/1651110/23/16511 Results 24 hrs Laboratory Tests Test 10/22/16 17:28 10/22/16 21:07 10/23/16 00:50 10/23/16 05:12 Bedside Glucose 120 209 Creatine Kinase 83 80 Creatine Kinase Index 1.3 1.3 Creatinine Kinase MB (Mass) 1.04 1.01 Troponin I 0.016 0.013 White Blood Count 6.0 Red Blood Count 2.63 L Hemoglobin 7.5 L Hematocrit 25.0 L Mean Corpuscular Volume 95.1 Mean Corpuscular Hemoglobin 28.5 L Mean Corpuscular Hemoglobin Concent 30.0 L Red Cell Distribution Width 12.9 Platelet Count 334 Mean Platelet Volume 8.8 Neutrophils % 35.6 L Lymphocytes % 54.7 H Monocytes % 6.5 Eosinophils % 2.2 Basophils % 0.7 Nucleated Red Blood Cells % 0.0 Neutrophils # 2.1 Lymphocytes # 3.3 H Monocytes # 0.4 Eosinophils # 0.1 Basophils # 0.0 Nucleated Red Blood Cells # 0.0 Sodium Level 140 Potassium Level 4.7 Chloride Level 108 Carbon Dioxide Level 28 Anion Gap 9 Blood Urea Nitrogen 24 H Creatinine 2.31 H Glucose Level 125 # Calcium Level 7.9 L Triglycerides Level 122 Cholesterol Level 280 H LDL Cholesterol, Calculated 207 HDL Cholesterol 49 Cholesterol/HDL Ratio 5.7 Test 10/23/16 07:46 10/23/16 11:57 Bedside Glucose 138 205 Medications Medications Current Medications Aspirin (Halfprin) 81 mg DAILY PO Last administered on 10/23/16 08:08; Admin Dose 81 MG; Start 10/22/16 at 09:00 Carvedilol (Coreg) 12.5 mg BID PO Last administered on 10/23/16 08:10; Admin Dose 12.5 MG; Start 10/21/16 at 22:30 Citalopram Hydrobromide (Celexa) 20 mg DAILY PO Last administered on 10/23/16 08:08; Admin Dose 20 MG; Start 10/22/16 at 09:00 Ferrous Sulfate (Ferrous Sulfate (Ec)) 325 mg DAILY PO Last administered on 08:08; Admin Dose 325 MG; Start 10/22/16 at 09:00 Folic Acid (Folic Acid) 1 mg DAILY PO Last administered on 10/23/16 08:09; Admin Dose 1 MG; Start 10/22/16 at 09:00 Gabapentin (Neurontin) 600 mg TID PO Last administered on 10/23/16 12:02; Admin Dose 600 MG; Start 10/21/16 at 22:30 Amlodipine Besylate (Norvasc) 10 mg DAILY PO Last administered on 10/23/16 08: 09; Admin Dose 10 MG; Start 10/21/16 at 21:30 Hydralazine HCl (Apresoline) 10 mg Q4H PRN IV SBP>150 mm Hg Last administered on 10/22/16 00:29; Admin Dose 10 MG; Start 10/21/16 at 21:30 Insulin Glargine (Lantus) 10 unit QHS SC Last administered on 10/22/16 22:27; Admin Dose 10 UNIT; Start 10/21/16 at 22:30 Ondansetron HCl (Zofran Inj) 4 mg Q4H PRN IV NAUSEA AND/OR VOMITING; Start at 21:30 Acetaminophen (Tylenol Tab) 650 mg Q6H PRN PO PAIN LEVEL 1-3 OR FEVER; Start at 21:30 Acetaminophen/ Hydrocodone Bitart ([place] (5/325)) 1 tab Q6H PRN PO MODERATE PAIN LEVEL 4-6; Start 10/21/16 at 21:30 Hydromorphone HCl (Dilaudid) 1 mg Q4H PRN IV SEVERE PAIN LEVEL 7-10 Last administered on 10/23/16 08:15; Admin Dose 1 MG; Start 10/21/16 at 21:30 Docusate Sodium (Colace) 100 mg Q12H PRN PO CONSTIPATION; Start 10/21/16 at 21: 30 Magnesium Hydroxide (Milk Of Mag) 30 ml DAILY PRN PO CONSTIPATION; Start at 21:30 Bisacodyl (Dulcolax) 5 mg DAILY PRN PO CONSTIPATION; Start 10/21/16 at 21:30 Bisacodyl (Dulcolax Supp) 10 mg DAILY PRN [place] CONSTIPATION; Start 10/21/16 at 21 :30 Sodium Biphosphate/ Sodium Phosphate (Fleet Enema) 133 ml DAILY PRN [place] CONSTIPATION; Start 10/21/16 at 21:30 Zolpidem Tartrate (Ambien) 5 mg QHS PRN PO SLEEP; Start 10/21/16 at 21:30 Heparin Sodium (Porcine) (Heparin (5000 Units/0.5 ml)) 5,000 unit Q12 SC Last administered on 10/23/16 08:23; Admin Dose 5,000 UNIT; Start 10/21/16 at 22:30 Famotidine (Pepcid) 20 mg DAILY PO Last administered on 10/23/16t 08:24; Admin Dose 20 MG; Start 10/23/16 at 09:00 RAFFY RAO Oct 23, 2016 12:14
[2016-10-23 13:08] LABS: CREATINE KINASE 103 IU/L (23-200)
[2016-10-23 13:58] LABS: TROPONIN-I < 0.012 ng/ml (0.00-0.12)
--- NOTE | 2016-10-23 18:39 | CONS ---
Date/Time of Note Date/Time of Note DATE: 10/23/16 TIME: 18:37 Assessment/Plan Assessment/Plan Additional Assessment/Plan 1. Anasarca, likely secondary to worsening renal failure. 2. Acute kidney injury on chronic kidney disease secondary to prerenal azotemia and worsening diabetes mellitus. 3. Superficial vein thrombosis in left posterior tibial vein. 4. History of diabetes mellitus. 5. Hypertension with currently having accelerated hypertension, systolic blood pressure 186/103. PLAN: change lasix to 40mg BID Renal US showed Echogenic kidneys, suggestive of medical renal disease. Cardiology consulted on the case will follow up Consultation Date/Type/Reason Admit Date/Time Oct 21, 2016 at 22:03 Initial Consult Date Type of Consultation: NEPHROLOGY Referring Provider: IKE VALIENTE MD 24 HR Interval Summary Free Text/Dictation doing ok BP stable , Cr 2.31, improving leg edema Exam/Review of Systems Vital Signs Vitals Vital Signs Date Time Temp Pulse Resp B/P Pulse Ox O2 Delivery O2 Flow Rate FiO2 10/23/16 07:41 98.2 70 16 167/92 100 Intake and Output 10/22/16 10/22/16 10/23/16 15:00 23:00 07:00 Intake Total 1060 ml 480 ml Output Total 1200 ml 500 ml Balance -140 ml -20 ml Exam GENERAL: Awake, alert, in moderate distress due to the lower extremity edema and shortness of breath. HEENT: Normal. Pupils equal, round, reactive to light and accommodation. Extraocular muscles are intact. NECK: Supple, no JVD, no lymphadenopathy. LUNGS: Clear to auscultation. No crackles, no wheezes. HEART: S1, S2, with regular rhythm, no murmur. ABDOMEN: Soft, nontender, nondistended. Bowel sounds are present. EXTREMITIES: 2+ pitting edema. No clubbing, no cyanosis. NEUROLOGICAL: Cranial nerves II through XII intact. No focal deficits. PSYCHIATRIC: Appropriate affect and mood. Results Result Diagram: 10/23/16 0510/23/16 0512 Results 24 hrs Laboratory Tests Test 10/22/16 21:07 10/23/16 00:50 10/23/16 05:12 10/23/16 07:46 Bedside Glucose 209 138 Creatine Kinase 83 80 Creatine Kinase Index 1.3 1.3 Creatinine Kinase MB (Mass) 1.04 1.01 Troponin I 0.016 0.013 White Blood Count 6.0 Red Blood Count 2.63 L Hemoglobin 7.5 L Hematocrit 25.0 L Mean Corpuscular Volume 95.1 Mean Corpuscular Hemoglobin 28.5 L Mean Corpuscular Hemoglobin Concent 30.0 L Red Cell Distribution Width 12.9 Platelet Count 334 Mean Platelet Volume 8.8 Neutrophils % 35.6 L Lymphocytes % 54.7 H Monocytes % 6.5 Eosinophils % 2.2 Basophils % 0.7 Nucleated Red Blood Cells % 0.0 Neutrophils # 2.1 Lymphocytes # 3.3 H Monocytes # 0.4 Eosinophils # 0.1 Basophils # 0.0 Nucleated Red Blood Cells # 0.0 Sodium Level 140 Potassium Level 4.7 Chloride Level 108 Carbon Dioxide Level 28 Anion Gap 9 Blood Urea Nitrogen 24 H Creatinine 2.31 H Glucose Level 125 # Calcium Level 7.9 L Triglycerides Level 122 Cholesterol Level 280 H LDL Cholesterol, Calculated 207 HDL Cholesterol 49 Cholesterol/HDL Ratio 5.7 Test 10/23/16 11:57 10/23/16 12:35 10/23/16 17:11 Bedside Glucose 205 145 Creatine Kinase 103 Creatine Kinase Index 1.5 Creatinine Kinase MB (Mass) 1.50 Troponin I < 0.012 Medications Medications Current Medications Aspirin (Halfprin) 81 mg DAILY PO Last administered on 10/23/16 08:08; Admin Dose 81 MG; Start 10/22/16 at 09:00 Citalopram Hydrobromide (Celexa) 20 mg DAILY PO Last administered on 10/23/16 08:08; Admin Dose 20 MG; Start 10/22/16 at 09:00 Ferrous Sulfate (Ferrous Sulfate (Ec)) 325 mg DAILY PO Last administered on 08:08; Admin Dose 325 MG; Start 10/22/16 at 09:00 Folic Acid (Folic Acid) 1 mg DAILY PO Last administered on 10/23/16 08:09; Admin Dose 1 MG; Start 10/22/16 at 09:00 Gabapentin (Neurontin) 600 mg TID PO Last administered on 10/23/16 12:02; Admin Dose 600 MG; Start 10/21/16 at 22:30 Amlodipine Besylate (Norvasc) 10 mg DAILY PO Last administered on 10/23/16 08: 09; Admin Dose 10 MG; Start 10/21/16 at 21:30 Hydralazine HCl (Apresoline) 10 mg Q4H PRN IV SBP>150 mm Hg Last administered on 10/22/16 00:29; Admin Dose 10 MG; Start 10/21/16 at 21:30 Insulin Glargine (Lantus) 10 unit QHS SC Last administered on 10/22/16 22:27; Admin Dose 10 UNIT; Start 10/21/16 at 22:30 Ondansetron HCl (Zofran Inj) 4 mg Q4H PRN IV NAUSEA AND/OR VOMITING; Start at 21:30 Acetaminophen (Tylenol Tab) 650 mg Q6H PRN PO PAIN LEVEL 1-3 OR FEVER; Start at 21:30 Acetaminophen/ Hydrocodone Bitart ([place] (5/325)) 1 tab Q6H PRN PO MODERATE PAIN LEVEL 4-6; Start 10/21/16 at 21:30 Hydromorphone HCl (Dilaudid) 1 mg Q4H PRN IV SEVERE PAIN LEVEL 7-10 Last administered on 10/23/16 18:14; Admin Dose 1 MG; Start 10/21/16 at 21:30 Docusate Sodium (Colace) 100 mg Q12H PRN PO CONSTIPATION; Start 10/21/16 at 21: 30 Magnesium Hydroxide (Milk Of Mag) 30 ml DAILY PRN PO CONSTIPATION; Start at 21:30 Bisacodyl (Dulcolax) 5 mg DAILY PRN PO CONSTIPATION; Start 10/21/16 at 21:30 Bisacodyl (Dulcolax Supp) [address] CONSTIPATION; Start 10/21/16 at 21 :30 Sodium Biphosphate/ Sodium Phosphate (Fleet Enema) [address] CONSTIPATION; Start 10/21/16 at 21:30 Zolpidem Tartrate (Ambien) 5 mg QHS PRN PO SLEEP; Start 10/21/16 at 21:30 Heparin Sodium (Porcine) (Heparin (5000 Units/0.5 ml)) 5,000 unit Q12 SC Last administered on 10/23/16 08:23; Admin Dose 5,000 UNIT; Start 10/21/16 at 22:30 Famotidine (Pepcid) 20 mg DAILY PO Last administered on 10/23/16 08:24; Admin Dose 20 MG; Start 10/23/16 at 09:00 Carvedilol (Coreg) 25 mg BID PO ; Start 10/23/16 at 21:00 EMILY OVIEDO MD Oct 23, 2016 18:39
[2016-10-23 19:47] VITALS: BP 166/82; RESP 20
[2016-10-23] MEDS ORDERED: SOD CHLORIDE 0.9% 250 ML IV* ONE (19:53)
[2016-10-23] MEDS ORDERED: EPOETIN 10000 UNITS/1 ML INJ (ESRD) SC SCH (20:07)
[2016-10-23] MEDS: hydrALAzine 20 MG INJ IV PRN (20:49)
[2016-10-23] MEDS: INSULIN GLARGINE [LANtus] 3 ML PEN SC SCH (21:02)
--- NOTE | 2016-10-23 22:04 | PN ---
Date/Time of Note Date/Time of Note DATE: 10/23/16 TIME: 22:02 Assessment/Plan Lines/Catheters IV Catheter Type (from [facility]): Saline Lock Assessment/Plan Assessment/Plan 1. Bilateral lower extremities edema. We will obtain a 2D echo and evaluation of patient's ejection fraction. Dr. Casey will be following patient in cardiology consultation. 2. Left posterior tibial vein thrombus. Continue warm compress. We will continue heparin. We will reevaluate left lower extremity ultrasound in 5 days. 3. Accelerated hypertension. Continue patient on Coreg, Norvasc, hydralazine. 4. Diabetes mellitus type 2. Continue 1800 ADA 2 g sodium, low fat, low cholesterol diet. Continue Lantus and NovoLog per moderate algorithm sliding scale. We will obtain hemoglobin A1c. 5. Acute kidney injury on chronic kidney disease. Dr. Ulrich is following in nephrology consultation. 6. Obesity. Weight loss advised. 7. Iron deficiency anemia. Continue iron supplements. - hold heparin - transfuse 1 unit of PRBC 8. Pepcid for peptic ulcer disease prophylaxis. Further recommendations based on clinical course. Plan of care discussed with Dr. Clark. Subjective 24 Hr Interval Summary Constitutional: other (generelized weakness) Eyes: no complaints ENT: no complaints Respiratory: no complaints Cardiovascular: no complaints Gastrointestinal: no complaints Genitourinary: no complaints Musculoskeletal: no complaints Skin: no complaints Neurologic: no complaints Endocrine: no complaints Lymphatic: no complaints Psychological: no complaints Exam/Review of Systems Vital Signs Vitals Vital Signs Date Time Temp Pulse Resp B/P Pulse Ox O2 Delivery O2 Flow Rate FiO2 10/23/16 19:47 98.2 60 20 166/82 99 Intake and Output 10/22/16 10/22/16 10/23/16 15:00 23:00 07:00 Intake Total 1060 ml 480 ml Output Total 1200 ml 500 ml Balance -140 ml -20 ml Exam Constitutional: alert, oriented, well developed Psych: nl mood/affect Head: atraumatic Eyes: EOMI Respiratory: clear to auscultation Cardiovascular: nl pulses Gastrointestinal: non-tender, soft Musculoskeletal: other Neurological: nl mental status, nl speech Skin: nl turgor Lymph: nl lymph nodes Results Result Diagram: 10/23/1651110/23/16 0512 Results 24 hrs Laboratory Tests Test 10/23/16 00:50 10/23/16 05:12 10/23/16 07:46 10/23/16 11:57 Creatine Kinase 83 80 Creatine Kinase Index 1.3 1.3 Creatinine Kinase MB (Mass) 1.04 1.01 Troponin I 0.016 0.013 White Blood Count 6.0 Red Blood Count 2.63 L Hemoglobin 7.5 L Hematocrit 25.0 L Mean Corpuscular Volume 95.1 Mean Corpuscular Hemoglobin 28.5 L Mean Corpuscular Hemoglobin Concent 30.0 L Red Cell Distribution Width 12.9 Platelet Count 334 Mean Platelet Volume 8.8 Neutrophils % 35.6 L Lymphocytes % 54.7 H Monocytes % 6.5 Eosinophils % 2.2 Basophils % 0.7 Nucleated Red Blood Cells % 0.0 Neutrophils # 2.1 Lymphocytes # 3.3 H Monocytes # 0.4 Eosinophils # 0.1 Basophils # 0.0 Nucleated Red Blood Cells # 0.0 Sodium Level 140 Potassium Level 4.7 Chloride Level 108 Carbon Dioxide Level 28 Anion Gap 9 Blood Urea Nitrogen 24 H Creatinine 2.31 H Glucose Level 125 # Calcium Level 7.9 L Triglycerides Level 122 Cholesterol Level 280 H LDL Cholesterol, Calculated 207 HDL Cholesterol 49 Cholesterol/HDL Ratio 5.7 Bedside Glucose 138 205 Test 10/23/16 12:35 10/23/16 17:11 10/23/16 20:47 Creatine Kinase 103 Creatine Kinase Index 1.5 Creatinine Kinase MB (Mass) 1.50 Troponin I < 0.012 Bedside Glucose 145 208 Medications Medications Current Medications Aspirin (Halfprin) 81 mg DAILY PO Last administered on 10/23/16 08:08; Admin Dose 81 MG; Start 10/22/16 at 09:00 Citalopram Hydrobromide (Celexa) 20 mg DAILY PO Last administered on 10/23/16 08:08; Admin Dose 20 MG; Start 10/22/16 at 09:00 Ferrous Sulfate (Ferrous Sulfate (Ec)) 325 mg DAILY PO Last administered on 08:08; Admin Dose 325 MG; Start 10/22/16 at 09:00 Folic Acid (Folic Acid) 1 mg DAILY PO Last administered on 10/23/16 08:09; Admin Dose 1 MG; Start 10/22/16 at 09:00 Gabapentin (Neurontin) 600 mg TID PO Last administered on 10/23/16 20:50; Admin Dose 600 MG; Start 10/21/16 at 22:30 Amlodipine Besylate (Norvasc) 10 mg DAILY PO Last administered on 10/23/16 08: 09; Admin Dose 10 MG; Start 10/21/16 at 21:30 Hydralazine HCl (Apresoline) 10 mg Q4H PRN IV SBP>150 mm Hg Last administered on 10/23/16 20:49; Admin Dose 10 MG; Start 10/21/16 at 21:30 Insulin Glargine (Lantus) 10 unit QHS SC Last administered on 10/23/16 21:02; Admin Dose 10 UNIT; Start 10/21/16 at 22:30 Ondansetron HCl (Zofran Inj) 4 mg Q4H PRN IV NAUSEA AND/OR VOMITING; Start at 21:30 Acetaminophen (Tylenol Tab) 650 mg Q6H PRN PO PAIN LEVEL 1-3 OR FEVER; Start at 21:30 Acetaminophen/ Hydrocodone Bitart ([place] (5/325)) 1 tab Q6H PRN PO MODERATE PAIN LEVEL 4-6; Start 10/21/16 at 21:30 Hydromorphone HCl (Dilaudid) 1 mg Q4H PRN IV SEVERE PAIN LEVEL 7-10 Last administered on 10/23/16 18:14; Admin Dose 1 MG; Start 10/21/16 at 21:30 Docusate Sodium (Colace) 100 mg Q12H PRN PO CONSTIPATION; Start 10/21/16 at 21: 30 Magnesium Hydroxide (Milk Of Mag) 30 ml DAILY PRN PO CONSTIPATION; Start at 21:30 Bisacodyl (Dulcolax) 5 mg DAILY PRN PO CONSTIPATION; Start 10/21/16 at 21:30 Bisacodyl (Dulcolax Supp) 10 mg DAILY PRN [place] CONSTIPATION; Start 10/21/16 at 21 :30 Sodium Biphosphate/ Sodium Phosphate (Fleet Enema) 133 ml DAILY PRN [place] CONSTIPATION; Start 10/21/16 at 21:30 Zolpidem Tartrate (Ambien) 5 mg QHS PRN PO SLEEP; Start 10/21/16 at 21:30 Heparin Sodium (Porcine) (Heparin (5000 Units/0.5 ml)) 5,000 unit Q12 SC Last administered on 10/23/16 08:23; Admin Dose 5,000 UNIT; Start 10/21/16 at 22:30 ; Status Future Hold Famotidine (Pepcid) 20 mg DAILY PO Last administered on 10/23/16 08:24; Admin Dose 20 MG; Start 10/23/16 at 09:00 Carvedilol (Coreg) 25 mg BID PO Last administered on 10/23/16 20:50; Admin Dose 25 MG; Start 10/23/16 at 21:00 Epoetin Jeremy (Epogen (Esrd)) 10,000 units Th@17 SC Last administered on 21:41; Admin Dose 10,000 UNITS; Start 10/23/16 at 20:07 JENNY WHYTE Oct 23, 2016 22:04
[2016-10-24 05:33] LABS: ADD SCAN DIFF NO
[2016-10-24 05:51] LABS: BASOPHIL # 0.1 10^3/ul (0.0-0.1); BASOPHILS % 0.8 % (0.0-2.0); EOSINOPHILS # 0.1 10^3/ul (0.0-0.5); EOSINOPHILS % 2.1 % (0.0-7.0); HEMATOCRIT 27.1 % (42.0-52.0); HEMOGLOBIN 8.3 g/dl (14.0-18.0); LYMPHOCYTES # 2.7 10^3/ul (0.8-2.9); LYMPHOCYTES % 44.8 % (15.0-51.0); MEAN CORPUSCULAR HEMOGLOBIN 28.5 pg (29.0-33.0); MEAN CORPUSCULAR HGB CONC 30.6 g/dl (32.0-37.0); MEAN CORPUSCULAR VOLUME 93.1 fl (82.0-101.0); MONOCYTE # 0.5 10^3/ul (0.3-0.9); MONOCYTES % 8.7 % (0.0-11.0); NEUTROPHIL # 2.6 10^3/ul (1.6-7.5); NEUTROPHILS % 43.3 % (39.0-77.0); PLATELET COUNT 319 10^3/UL (140-415); RED BLOOD COUNT 2.91 10^6/ul (4.70-6.10); RED CELL DISTRIBUTION WIDTH 12.9 % (11.5-14.5); WHITE BLOOD COUNT 6.1 10^3/ul (4.8-10.8)
[2016-10-24 05:59] LABS: CREATININE 2.21 mg/dl (0.61-1.24)
[2016-10-24 06:00] LABS: CALCIUM 7.8 mg/dl (8.4-10.2)
[2016-10-24] MEDS: FUROSEMIDE 40 MG TAB PO SCH ×2 (06:13→18:00)
[2016-10-24] MEDS: HYDROmorphONE 1 MG/ML SYG IV PRN ×3 (06:19→19:01)
[2016-10-24 07:51] VITALS: BP 140/80; RESP 18
[2016-10-24] MEDS: INSULIN ASPART [NOVOLOG] 3 ML PEN SC SCH ×4 (08:15→21:10)
[2016-10-24] MEDS: ASPIRIN (EC) 81 MG TAB PO SCH (08:34)
[2016-10-24] MEDS: CITALOPRAM 20 MG TAB PO SCH (08:34)
[2016-10-24] MEDS: FERROUS SULFATE (EC) 325 MG TAB PO SCH (08:34)
[2016-10-24] MEDS: FAMOTIDINE 20 MG TAB PO SCH (08:34)
[2016-10-24] MEDS: DOCUSATE SODIUM 100 MG CAP PO PRN (08:34)
[2016-10-24] MEDS: FOLIC ACID 1 MG TAB PO SCH (08:34)
[2016-10-24] MEDS: GABAPENTIN 300 MG CAP PO SCH ×3 (08:34→21:37)
[2016-10-24] MEDS: AMLODIPINE 10 MG TAB PO SCH (08:35)
[2016-10-24] MEDS ORDERED: DEXTROSE 50% 50 ML SYRINGE IV PRN ×2 (10:00)
[2016-10-24] MEDS ORDERED: GLUCAGON 1 MG INJ IM PRN (10:00)
[2016-10-24] MEDS ORDERED: GLUCOSE GEL 15 GRAM TUBE PO PRN ×2 (10:00)
[2016-10-24] MEDS ORDERED: GLUCOSE GEL 15 GRAM TUBE BUCCAL PRN (10:00)
--- NOTE | 2016-10-24 11:46 | CONS ---
Date/Time of Note Date/Time of Note DATE: 10/24/16 TIME: 11:44 Assessment/Plan Assessment/Plan Chief Complaint/Hosp Course IMPRESSION: 1. Hypertensive urgency/emergency, slowly improving on oral antihypertensives. 2. Lower extremity edema, assess for congestive heart failure.-NL EF/mild MR/TR /OK/mild PHTN by echo in office 10/2016 3. History of dyslipidemia. 4. Renal failure. 5. Diabetes mellitus. 6. Anemia. Recc: -Continue coreg/norvasc -Add hydralazine to improve BP control -Continue asa -Continue lasix and follow volume status and renal fxn closely -Renal eval ongoing Problems: Consultation Date/Type/Reason Admit Date/Time Oct 21, 2016 at 22:03 Initial Consult Date 10/22/2016 Type of Consultation: Cardiology Reason for Consultation HTN Referring Provider: IKE VALIENTE MD Exam/Review of Systems Vital Signs Vitals Vital Signs Date Time Temp Pulse Resp B/P Pulse Ox O2 Delivery O2 Flow Rate FiO2 10/24/16 07:51 98.2 75 18 140/80 95 Intake and Output 10/23/16 10/23/16 10/24/16 14:59 22:59 06:59 Intake Total 1280 ml 1370 ml Balance 1280 ml 1370 ml Exam Review of Systems: CONSTITUTIONAL: No fevers, chills. PULMONARY: No sob CARDIOVASCULAR: No chest pain/palpitations GASTROINTESTINAL: No nausea/vomiting. GENITOURINARY: No hematuria/dysuria. MUSCULOSKELETAL: No myagias/arthalgias. PSYCHIATRIC: The patient denies depression. NEUROLOGIC: No weakness Constitutional: alert, oriented Psych: no complaints Head: normocephalic ENMT: mucosa pink and moist Neck: jvd (9 cm water), supple Respiratory: diminished breath sounds (at bases/B) Cardiovascular: regular rate and rhythm Gastrointestinal: non-tender, soft Musculoskeletal: muscle tone (normal) Extremities: pitting pedal edema (Bilateral) Results Result Diagram: 10/24/16 0520 10/24/16 0520 Results 24 hrs Laboratory Tests Test 10/23/16 11:57 10/23/16 12:35 10/23/16 17:11 10/23/16 20:47 Bedside Glucose 205 145 208 Creatine Kinase 103 Creatine Kinase Index 1.5 Creatinine Kinase MB (Mass) 1.50 Troponin I < 0.012 Test 10/24/16 05:20 10/24/16 08:00 White Blood Count 6.1 Red Blood Count 2.91 L Hemoglobin 8.3 L Hematocrit 27.1 L Mean Corpuscular Volume 93.1 Mean Corpuscular Hemoglobin 28.5 L Mean Corpuscular Hemoglobin Concent 30.6 L Red Cell Distribution Width 12.9 Platelet Count 319 Mean Platelet Volume 9.0 Neutrophils % 43.3 Lymphocytes % 44.8 Monocytes % 8.7 Eosinophils % 2.1 Basophils % 0.8 Nucleated Red Blood Cells % 0.0 Neutrophils # 2.6 Lymphocytes # 2.7 Monocytes # 0.5 Eosinophils # 0.1 Basophils # 0.1 Nucleated Red Blood Cells # 0.0 Sodium Level 136 Potassium Level 4.0 Chloride Level 106 Carbon Dioxide Level 26 Anion Gap 8 Blood Urea Nitrogen 25 H Creatinine 2.21 H Glucose Level 110 Calcium Level 7.8 L Bedside Glucose 103 Medications Medications Current Medications Aspirin (Halfprin) 81 mg DAILY PO Last administered on 10/24/16 08:34; Admin Dose 81 MG; Start 10/22/16 at 09:00 Citalopram Hydrobromide (Celexa) 20 mg DAILY PO Last administered on 10/24/16 08:34; Admin Dose 20 MG; Start 10/22/16 at 09:00 Ferrous Sulfate (Ferrous Sulfate (Ec)) 325 mg DAILY PO Last administered on 08:34; Admin Dose 325 MG; Start 10/22/16 at 09:00 Folic Acid (Folic Acid) 1 mg DAILY PO Last administered on 10/24/16 08:34; Admin Dose 1 MG; Start 10/22/16 at 09:00 Gabapentin (Neurontin) 600 mg TID PO Last administered on 10/24/16 08:34; Admin Dose 600 MG; Start 10/21/16 at 22:30 Amlodipine Besylate (Norvasc) 10 mg DAILY PO Last administered on 10/24/16 08: 35; Admin Dose 10 MG; Start 10/21/16 at 21:30 Hydralazine HCl (Apresoline) 10 mg Q4H PRN IV SBP>150 mm Hg Last administered on 10/23/16 20:49; Admin Dose 10 MG; Start 10/21/16 at 21:30 Insulin Glargine (Lantus) 10 unit QHS SC Last administered on 10/23/16 21:02; Admin Dose 10 UNIT; Start 10/21/16 at 22:30 Ondansetron HCl (Zofran Inj) 4 mg Q4H PRN IV NAUSEA AND/OR VOMITING; Start at 21:30 Acetaminophen (Tylenol Tab) 650 mg Q6H PRN PO PAIN LEVEL 1-3 OR FEVER; Start at 21:30 Acetaminophen/ Hydrocodone Bitart ([place] (5/325)) 1 tab Q6H PRN PO MODERATE PAIN LEVEL 4-6; Start 10/21/16 at 21:30 Hydromorphone HCl (Dilaudid) 1 mg Q4H PRN IV SEVERE PAIN LEVEL 7-10 Last administered on 10/24/16 06:19; Admin Dose 1 MG; Start 10/21/16 at 21:30 Docusate Sodium (Colace) 100 mg Q12H PRN PO CONSTIPATION Last administered on 08:34; Admin Dose 100 MG; Start 10/21/16 at 21:30 Magnesium Hydroxide (Milk Of Mag) 30 ml DAILY PRN PO CONSTIPATION; Start at 21:30 Bisacodyl (Dulcolax) 5 mg DAILY PRN PO CONSTIPATION; Start 10/21/16 at 21:30 Bisacodyl (Dulcolax Supp) 10 mg DAILY PRN [place] CONSTIPATION; Start 10/21/16 at 21 :30 Sodium Biphosphate/ Sodium Phosphate (Fleet Enema) 133 ml DAILY PRN [place] CONSTIPATION; Start 10/21/16 at 21:30 Zolpidem Tartrate (Ambien) 5 mg QHS PRN PO SLEEP; Start 10/21/16 at 21:30 Heparin Sodium (Porcine) (Heparin (5000 Units/0.5 ml)) 5,000 unit Q12 SC Last administered on 10/23/16 08:23; Admin Dose 5,000 UNIT; Start 10/21/16 at 22:30 ; Status Future Hold Famotidine (Pepcid) 20 mg DAILY PO Last administered on 10/24/16 08:34; Admin Dose 20 MG; Start 10/23/16 at 09:00 Carvedilol (Coreg) 25 mg BID PO Last administered on 10/24/16 08:34; Admin Dose 25 MG; Start 10/23/16 at 21:00 Epoetin Jeremy (Epogen (Esrd)) 10,000 units Th@17 SC Last administered on 21:41; Admin Dose 10,000 UNITS; Start 10/23/16 at 20:07 Miscellaneous Information 1 ea NOTE XX ; Start 10/24/16 at 10:00 Glucose (Glutose) 15 gm Q15M PRN PO DECREASED GLUCOSE; Start 10/24/16 at 10:00 Glucose (Glutose) 22.5 gm Q15M PRN PO DECREASED GLUCOSE; Start 10/24/16 at 10: 00 Dextrose (D50w Syringe) 25 ml Q15M PRN IV DECREASED GLUCOSE; Start 10/24/16 at 10:00 Dextrose (D50w Syringe) 50 ml Q15M PRN IV DECREASED GLUCOSE; Start 10/24/16 at 10:00 Glucagon (Glucagen) 1 mg Q15M PRN IM DECREASED GLUCOSE; Start 10/24/16 at 10:00 Glucose (Glutose) 15 gm Q15M PRN BUCCAL DECREASED GLUCOSE; Start 10/24/16 at 10 :00 RAFFY RAO Oct 24, 2016 11:46
--- NOTE | 2016-10-24 12:15 | CONS ---
Date/Time of Note Date/Time of Note DATE: 10/24/16 TIME: 12:14 Assessment/Plan Assessment/Plan Additional Assessment/Plan 1. Anasarca, likely secondary to worsening renal failure. 2. Acute kidney injury on chronic kidney disease secondary to prerenal azotemia and worsening diabetes mellitus. 3. Superficial vein thrombosis in left posterior tibial vein. 4. History of diabetes mellitus. 5. Hypertension with currently having accelerated hypertension, systolic blood pressure 186/103. PLAN: changed lasix to 40mg BID yesterday Renal US showed Echogenic kidneys, suggestive of medical renal disease. Cardiology consulted on the case will follow up Consultation Date/Type/Reason Admit Date/Time Oct 21, 2016 at 22:03 Type of Consultation: NEPHROLOGY Reason for Consultation acute Kidney injury on CKD Referring Provider: IKE VALIENTE MD 24 HR Interval Summary Free Text/Dictation Cr 2.21, BP stable, no complaints Exam/Review of Systems Vital Signs Vitals Vital Signs Date Time Temp Pulse Resp B/P Pulse Ox O2 Delivery O2 Flow Rate FiO2 10/24/16 07:51 98.2 75 18 140/80 95 Intake and Output 10/23/16 10/23/16 10/24/16 15:00 23:00 07:00 Intake Total 1280 ml 1370 ml Balance 1280 ml 1370 ml Exam GENERAL: Awake, alert, HEENT: Normal. Pupils equal, round, reactive to light and accommodation. Extraocular muscles are intact. NECK: Supple, no JVD, no lymphadenopathy. LUNGS: Clear to auscultation. No crackles, no wheezes. HEART: S1, S2, with regular rhythm, no murmur. ABDOMEN: Soft, nontender, nondistended. Bowel sounds are present. EXTREMITIES: 2+ pitting edema. No clubbing, no cyanosis. NEUROLOGICAL: Cranial nerves II through XII intact. No focal deficits. PSYCHIATRIC: Appropriate affect and mood. Results Result Diagram: 10/24/16 0520 10/24/16 0520 Results 24 hrs Laboratory Tests Test 10/23/16 12:35 10/23/16 17:11 10/23/16 20:47 10/24/16 05:20 Creatine Kinase 103 Creatine Kinase Index 1.5 Creatinine Kinase MB (Mass) 1.50 Troponin I < 0.012 Bedside Glucose 145 208 White Blood Count 6.1 Red Blood Count 2.91 L Hemoglobin 8.3 L Hematocrit 27.1 L Mean Corpuscular Volume 93.1 Mean Corpuscular Hemoglobin 28.5 L Mean Corpuscular Hemoglobin Concent 30.6 L Red Cell Distribution Width 12.9 Platelet Count 319 Mean Platelet Volume 9.0 Neutrophils % 43.3 Lymphocytes % 44.8 Monocytes % 8.7 Eosinophils % 2.1 Basophils % 0.8 Nucleated Red Blood Cells % 0.0 Neutrophils # 2.6 Lymphocytes # 2.7 Monocytes # 0.5 Eosinophils # 0.1 Basophils # 0.1 Nucleated Red Blood Cells # 0.0 Sodium Level 136 Potassium Level 4.0 Chloride Level 106 Carbon Dioxide Level 26 Anion Gap 8 Blood Urea Nitrogen 25 H Creatinine 2.21 H Glucose Level 110 Calcium Level 7.8 L Test 10/24/16 08:00 10/24/16 12:01 Bedside Glucose 103 138 Medications Medications Current Medications Aspirin (Halfprin) 81 mg DAILY PO Last administered on 10/24/16 08:34; Admin Dose 81 MG; Start 10/22/16 at 09:00 Citalopram Hydrobromide (Celexa) 20 mg DAILY PO Last administered on 10/24/16 08:34; Admin Dose 20 MG; Start 10/22/16 at 09:00 Ferrous Sulfate (Ferrous Sulfate (Ec)) 325 mg DAILY PO Last administered on 08:34; Admin Dose 325 MG; Start 10/22/16 at 09:00 Folic Acid (Folic Acid) 1 mg DAILY PO Last administered on 10/24/16 08:34; Admin Dose 1 MG; Start 10/22/16 at 09:00 Gabapentin (Neurontin) 600 mg TID PO Last administered on 10/24/16 12:03; Admin Dose 600 MG; Start 10/21/16 at 22:30 Amlodipine Besylate (Norvasc) 10 mg DAILY PO Last administered on 10/24/16 08: 35; Admin Dose 10 MG; Start 10/21/16 at 21:30 Hydralazine HCl (Apresoline) 10 mg Q4H PRN IV SBP>150 mm Hg Last administered on 10/23/16 20:49; Admin Dose 10 MG; Start 10/21/16 at 21:30 Insulin Glargine (Lantus) 10 unit QHS SC Last administered on 10/23/16 21:02; Admin Dose 10 UNIT; Start 10/21/16 at 22:30 Ondansetron HCl (Zofran Inj) 4 mg Q4H PRN IV NAUSEA AND/OR VOMITING; Start at 21:30 Acetaminophen (Tylenol Tab) 650 mg Q6H PRN PO PAIN LEVEL 1-3 OR FEVER; Start at 21:30 Acetaminophen/ Hydrocodone Bitart ([place] (5/325)) 1 tab Q6H PRN PO MODERATE PAIN LEVEL 4-6; Start 10/21/16 at 21:30 Hydromorphone HCl (Dilaudid) 1 mg Q4H PRN IV SEVERE PAIN LEVEL 7-10 Last administered on 10/24/16 11:41; Admin Dose 1 MG; Start 10/21/16 at 21:30 Docusate Sodium (Colace) 100 mg Q12H PRN PO CONSTIPATION Last administered on 08:34; Admin Dose 100 MG; Start 10/21/16 at 21:30 Magnesium Hydroxide (Milk Of Mag) 30 ml DAILY PRN PO CONSTIPATION; Start at 21:30 Bisacodyl (Dulcolax) 5 mg DAILY PRN PO CONSTIPATION; Start 10/21/16 at 21:30 Bisacodyl (Dulcolax Supp) 10 mg DAILY PRN [place] CONSTIPATION; Start 10/21/16 at 21 :30 Sodium Biphosphate/ Sodium Phosphate (Fleet Enema) 133 ml DAILY PRN [place] CONSTIPATION; Start 10/21/16 at 21:30 Zolpidem Tartrate (Ambien) 5 mg QHS PRN PO SLEEP; Start 10/21/16 at 21:30 Heparin Sodium (Porcine) (Heparin (5000 Units/0.5 ml)) 5,000 unit Q12 SC Last administered on 10/23/16 08:23; Admin Dose 5,000 UNIT; Start 10/21/16 at 22:30 ; Status Future Hold Famotidine (Pepcid) 20 mg DAILY PO Last administered on 10/24/16 08:34; Admin Dose 20 MG; Start 10/23/16 at 09:00 Carvedilol (Coreg) 25 mg BID PO Last administered on 10/24/16 08:34; Admin Dose 25 MG; Start 10/23/16 at 21:00 Epoetin Jeremy (Epogen (Esrd)) 10,000 units Th@17 SC Last administered on t 21:41; Admin Dose 10,000 UNITS; Start 10/23/16 at 20:07 Miscellaneous Information 1 ea NOTE XX ; Start 10/24/16 at 10:00 Glucose (Glutose) 15 gm Q15M PRN PO DECREASED GLUCOSE; Start 10/24/16 at 10:00 Glucose (Glutose) 22.5 gm Q15M PRN PO DECREASED GLUCOSE; Start 10/24/16 at 10: 00 Dextrose (D50w Syringe) 25 ml Q15M PRN IV DECREASED GLUCOSE; Start 10/24/16 at 10:00 Dextrose (D50w Syringe) 50 ml Q15M PRN IV DECREASED GLUCOSE; Start 10/24/16 at 10:00 Glucagon (Glucagen) 1 mg Q15M PRN IM DECREASED GLUCOSE; Start 10/24/16 at 10:00 Glucose (Glutose) 15 gm Q15M PRN BUCCAL DECREASED GLUCOSE; Start 10/24/16 at 10 :00 Hydralazine HCl (Apresoline) 25 mg Q8 PO ; Start 10/24/16 at 14:00 EMILY OVIEDO MD Oct 24, 2016 12:15
--- NOTE | 2016-10-24 15:31 | PN ---
Date/Time of Note Date/Time of Note DATE: 10/24/16 TIME: 15:18 Assessment/Plan VTE Prophylaxis VTE Prophylaxis Intervention: SCD's Lines/Catheters IV Catheter Type (from [facility]): Saline Lock Assessment/Plan Chief Complaint/Hosp Course ASSESSMENT AND PLAN: - Bilateral lower extremities edema and anasarca secondary to worsening renal failure. - Accelerated hypertension. Continue patient on Coreg, Norvasc, hydralazine. Dr. Casey will be following patient in cardiology consultation. - Left posterior tibial vein thrombus. Continue warm compress. We will continue heparin. We will reevaluate left lower extremity ultrasound in 5 days. - Diabetes mellitus type 2. Continue 1800 ADA 2 g sodium, low fat, low cholesterol diet. Continue Lantus and NovoLog per moderate algorithm sliding scale. We will obtain hemoglobin A1c. - Acute kidney injury on chronic kidney disease. Dr. Ulrich is following in nephrology consultation. - Obesity. Weight loss advised.-. Iron deficiency anemia. Continue iron supplements. Continue heparin, follow deep venous thrombosis prophylaxis and Pepcid for peptic ulcer disease prophylaxis. Further recommendations based on clinical course. Plan of care discussed with Dr. Clark. Problems: Subjective 24 Hr Interval Summary Free Text/Dictation Patient denies any fever chills denies nausea vomiting, continues to have high blood pressure, able to ambulate with physical therapy using cane, bilateral lower extremity edema with some improvement. Exam/Review of Systems Vital Signs Vitals Vital Signs Date Time Temp Pulse Resp B/P Pulse Ox O2 Delivery O2 Flow Rate FiO2 10/24/16 07:51 98.2 75 18 140/80 95 Intake and Output 10/23/16 10/23/16 10/24/16 15:00 23:00 07:00 Intake Total 1280 ml 1370 ml Balance 1280 ml 1370 ml Exam GENERAL: Well-developed, obese male currently is awake, alert. HEENT: Head is atraumatic, normocephalic. PERRLA. NECK: Supple, no cervical lymphadenopathy, no thyromegaly. CHEST: Lungs clear bilaterally. There is no rhonchi, wheezes, rales noted. CARDIOVASCULAR: Normal S1, S2. No murmurs, gallops, clicks, rubs noted. ABDOMEN: Round, soft, nondistended, nontender. Bowel sounds present. EXTREMITIES: The patient has bilateral lower extremities edema, 2+. The patient also has a left anterior foot intact blister. No rash, petechiae noted. NEUROLOGIC: Patient is awake, alert and oriented. SKIN: There is no rash, petechiae noted. NEUROLOGIC: The patient is awake, alert and oriented x4. Results Result Diagram: 10/24/16 0520 10/24/16 0520 Results 24 hrs Laboratory Tests Test 10/23/16 17:11 10/23/16 20:47 10/24/16 05:20 10/24/16 08:00 Bedside Glucose 145 208 103 White Blood Count 6.1 Red Blood Count 2.91 L Hemoglobin 8.3 L Hematocrit 27.1 L Mean Corpuscular Volume 93.1 Mean Corpuscular Hemoglobin 28.5 L Mean Corpuscular Hemoglobin Concent 30.6 L Red Cell Distribution Width 12.9 Platelet Count 319 Mean Platelet Volume 9.0 Neutrophils % 43.3 Lymphocytes % 44.8 Monocytes % 8.7 Eosinophils % 2.1 Basophils % 0.8 Nucleated Red Blood Cells % 0.0 Neutrophils # 2.6 Lymphocytes # 2.7 Monocytes # 0.5 Eosinophils # 0.1 Basophils # 0.1 Nucleated Red Blood Cells # 0.0 Sodium Level 136 Potassium Level 4.0 Chloride Level 106 Carbon Dioxide Level 26 Anion Gap 8 Blood Urea Nitrogen 25 H Creatinine 2.21 H Glucose Level 110 Calcium Level 7.8 L Test 10/24/16 12:01 Bedside Glucose 138 Medications Medications Current Medications Aspirin (Halfprin) 81 mg DAILY PO Last administered on 10/24/16 08:34; Admin Dose 81 MG; Start 10/22/16 at 09:00 Citalopram Hydrobromide (Celexa) 20 mg DAILY PO Last administered on 10/24/16 08:34; Admin Dose 20 MG; Start 10/22/16 at 09:00 Ferrous Sulfate (Ferrous Sulfate (Ec)) 325 mg DAILY PO Last administered on 08:34; Admin Dose 325 MG; Start 10/22/16 at 09:00 Folic Acid (Folic Acid) 1 mg DAILY PO Last administered on 10/24/16 08:34; Admin Dose 1 MG; Start 10/22/16 at 09:00 Gabapentin (Neurontin) 600 mg TID PO Last administered on 10/24/16 12:03; Admin Dose 600 MG; Start 10/21/16 at 22:30 Amlodipine Besylate (Norvasc) 10 mg DAILY PO Last administered on 10/24/16 08: 35; Admin Dose 10 MG; Start 10/21/16 at 21:30 Hydralazine HCl (Apresoline) 10 mg Q4H PRN IV SBP>150 mm Hg Last administered on 10/23/16 20:49; Admin Dose 10 MG; Start 10/21/16 at 21:30 Insulin Glargine (Lantus) 10 unit QHS SC Last administered on 10/23/16 21:02; Admin Dose 10 UNIT; Start 10/21/16 at 22:30 Ondansetron HCl (Zofran Inj) 4 mg Q4H PRN IV NAUSEA AND/OR VOMITING; Start at 21:30 Acetaminophen (Tylenol Tab) 650 mg Q6H PRN PO PAIN LEVEL 1-3 OR FEVER; Start at 21:30 Acetaminophen/ Hydrocodone Bitart ([place] (5/325)) 1 tab Q6H PRN PO MODERATE PAIN LEVEL 4-6; Start 10/21/16 at 21:30 Hydromorphone HCl (Dilaudid) 1 mg Q4H PRN IV SEVERE PAIN LEVEL 7-10 Last administered on 10/24/16 11:41; Admin Dose 1 MG; Start 10/21/16 at 21:30 Docusate Sodium (Colace) 100 mg Q12H PRN PO CONSTIPATION Last administered on 08:34; Admin Dose 100 MG; Start 10/21/16 at 21:30 Magnesium Hydroxide (Milk Of Mag) 30 ml DAILY PRN PO CONSTIPATION; Start at 21:30 Bisacodyl (Dulcolax) 5 mg DAILY PRN PO CONSTIPATION; Start 10/21/16 at 21:30 Bisacodyl (Dulcolax Supp) 10 mg DAILY PRN [place] CONSTIPATION; Start 10/21/16 at 21 :30 Sodium Biphosphate/ Sodium Phosphate (Fleet Enema) 133 ml DAILY PRN [place] CONSTIPATION; Start 10/21/16 at 21:30 Zolpidem Tartrate (Ambien) 5 mg QHS PRN PO SLEEP; Start 10/21/16 at 21:30 Heparin Sodium (Porcine) (Heparin (5000 Units/0.5 ml)) 5,000 unit Q12 SC Last administered on 10/23/16 08:23; Admin Dose 5,000 UNIT; Start 10/21/16 at 22:30 ; Status Future Hold Famotidine (Pepcid) 20 mg DAILY PO Last administered on 10/24/16 08:34; Admin Dose 20 MG; Start 10/23/16 at 09:00 Carvedilol (Coreg) 25 mg BID PO Last administered on 10/24/16 08:34; Admin Dose 25 MG; Start 10/23/16 at 21:00 Epoetin Jeremy (Epogen (Esrd)) 10,000 units Th@17 SC Last administered on 21:41; Admin Dose 10,000 UNITS; Start 10/23/16 at 20:07 Miscellaneous Information 1 ea NOTE XX ; Start 10/24/16 at 10:00 Glucose (Glutose) 15 gm Q15M PRN PO DECREASED GLUCOSE; Start 10/24/16 at 10:00 Glucose (Glutose) 22.5 gm Q15M PRN PO DECREASED GLUCOSE; Start 10/24/16 at 10: 00 Dextrose (D50w Syringe) 25 ml Q15M PRN IV DECREASED GLUCOSE; Start 10/24/16 at 10:00 Dextrose (D50w Syringe) 50 ml Q15M PRN IV DECREASED GLUCOSE; Start 10/24/16 at 10:00 Glucagon (Glucagen) 1 mg Q15M PRN IM DECREASED GLUCOSE; Start 10/24/16 at 10:00 Glucose (Glutose) 15 gm Q15M PRN BUCCAL DECREASED GLUCOSE; Start 10/24/16 at 10 :00 Hydralazine HCl (Apresoline) 25 mg Q8 PO Last administered on 10/24/16 14:59; Admin Dose 25 MG; Start 10/24/16 at 14:00 NI PADRON Oct 24, 2016 15:31
[2016-10-24 19:46] VITALS: BP 168/85; RESP 20
[2016-10-24] MEDS: INSULIN GLARGINE [LANtus] 3 ML PEN SC SCH (21:04)
[2016-10-25] MEDS: FUROSEMIDE 40 MG TAB PO SCH ×2 (05:30→17:30)
[2016-10-25 06:02] LABS: ADD SCAN DIFF NO; BASOPHILS % 0.6 % (0.0-2.0); EOSINOPHILS # 0.2 10^3/ul (0.0-0.5); EOSINOPHILS % 2.2 % (0.0-7.0); HEMATOCRIT 26.5 % (42.0-52.0); HEMOGLOBIN 8.4 g/dl (14.0-18.0); LYMPHOCYTES # 3.1 10^3/ul (0.8-2.9); LYMPHOCYTES % 46.1 % (15.0-51.0); MEAN CORPUSCULAR HEMOGLOBIN 29.5 pg (29.0-33.0); MEAN CORPUSCULAR HGB CONC 31.7 g/dl (32.0-37.0); MEAN PLATELET VOLUME 8.7 fl (7.4-10.4); MONOCYTE # 0.6 10^3/ul (0.3-0.9); MONOCYTES % 9.1 % (0.0-11.0); NEUTROPHIL # 2.8 10^3/ul (1.6-7.5); NEUTROPHILS % 41.6 % (39.0-77.0); PLATELET COUNT 339 10^3/UL (140-415); RED BLOOD COUNT 2.85 10^6/ul (4.70-6.10); WHITE BLOOD COUNT 6.7 10^3/ul (4.8-10.8)
[2016-10-25] MEDS: HYDROmorphONE 1 MG/ML SYG IV PRN ×4 (06:24→21:11)
[2016-10-25 06:30] LABS: POTASSIUM 4.4 mmol/L (3.5-5.1)
[2016-10-25 06:32] LABS: CREATININE 2.3 mg/dl (0.61-1.24)
[2016-10-25 06:33] LABS: CALCIUM 7.9 mg/dl (8.4-10.2)
[2016-10-25 07:53] VITALS: BP 130/82
[2016-10-25] MEDS: INSULIN ASPART [NOVOLOG] 3 ML PEN SC SCH ×4 (08:15→21:23)
[2016-10-25] MEDS: GABAPENTIN 300 MG CAP PO SCH ×3 (09:35→21:14)
[2016-10-25] MEDS: FOLIC ACID 1 MG TAB PO SCH (09:35)
[2016-10-25] MEDS: FAMOTIDINE 20 MG TAB PO SCH (09:35)
[2016-10-25] MEDS: FERROUS SULFATE (EC) 325 MG TAB PO SCH (09:36)
[2016-10-25] MEDS: ASPIRIN (EC) 81 MG TAB PO SCH (09:36)
[2016-10-25] MEDS: CITALOPRAM 20 MG TAB PO SCH (09:36)
[2016-10-25] MEDS: AMLODIPINE 10 MG TAB PO SCH (09:36)
--- NOTE | 2016-10-25 13:04 | PN ---
Date/Time of Note Date/Time of Note DATE: 10/25/16 TIME: 12:57 Assessment/Plan Lines/Catheters IV C[facility]ter Type (from [facility]): Saline Lock Assessment/Plan Assessment/Plan - Bilateral lower extremities edema and anasarca secondary to worsening renal failure. - Accelerated hypertension. Continue patient on Coreg, Norvasc, hydralazine. Dr. Casey will be following patient in cardiology consultation. - Left posterior tibial vein thrombus. Continue warm compress. We will continue heparin. We will reevaluate left lower extremity ultrasound in 5 days. - Diabetes mellitus type 2. Continue 1800 ADA 2 g sodium, low fat, low cholesterol diet. Continue Lantus and NovoLog per moderate algorithm sliding scale. We will obtain hemoglobin A1c. - Acute kidney injury on chronic kidney disease. Dr. Ulrich is following in nephrology consultation. - Obesity. Weight loss advised.-. Iron deficiency anemia. Continue iron supplements. Continue heparin, follow deep venous thrombosis prophylaxis and Pepcid for peptic ulcer disease prophylaxis. Further recommendations based on clinical course. Plan of care discussed with Dr. Clark. Exam/Review of Systems Vital Signs Vitals Vital Signs Date Time Temp Pulse Resp B/P Pulse Ox O2 Delivery O2 Flow Rate FiO2 10/25/16 07:53 98.4 74 130/82 96 10/24/16 19:46 20 Intake and Output 10/24/16 10/24/16 10/25/16 15:00 23:00 07:00 Intake Total 2400 ml 600 ml Balance 2400 ml 600 ml Exam Constitutional: alert, oriented, well developed Psych: nl mood/affect Head: atraumatic Eyes: EOMI, nl conjunctiva, nl sclera ENMT: nl external ears & nose Neck: non-tender Respiratory: clear to auscultation Cardiovascular: nl pulses Gastrointestinal: non-tender, soft Musculoskeletal: nl extremities to inspection Extremities: normal pulses Neurological: nl mental status, nl speech Lymph: nontender Results Result Diagram: 10/25/16 0502 10/25/16 0502 Results 24 hrs Laboratory Tests Test 10/24/16 21:00 10/25/16 05:02 10/25/16 05:30 10/25/16 07:55 Bedside Glucose 230 H 120 White Blood Count 6.7 Red Blood Count 2.85 L Hemoglobin 8.4 L Hematocrit 26.5 L Mean Corpuscular Volume 93.0 Mean Corpuscular Hemoglobin 29.5 Mean Corpuscular Hemoglobin Concent 31.7 L Red Cell Distribution Width 13.0 Platelet Count 339 Mean Platelet Volume 8.7 Neutrophils % 41.6 Lymphocytes % 46.1 Monocytes % 9.1 Eosinophils % 2.2 Basophils % 0.6 Nucleated Red Blood Cells % 0.0 Neutrophils # 2.8 Lymphocytes # 3.1 H Monocytes # 0.6 Eosinophils # 0.2 Basophils # 0.0 Nucleated Red Blood Cells # 0.0 Sodium Level 135 Potassium Level 4.4 Chloride Level 106 Carbon Dioxide Level 27 Anion Gap 6 L Blood Urea Nitrogen 23 H Creatinine 2.30 H Glucose Level 129 Calcium Level 7.9 L Stool Occult Blood NEGATIVE Test 10/25/16 11:46 Bedside Glucose 163 Medications Medications Current Medications Aspirin (Halfprin) 81 mg DAILY PO Last administered on 10/25/16 09:36; Admin Dose 81 MG; Start 10/22/16 at 09:00 Citalopram Hydrobromide (Celexa) 20 mg DAILY PO Last administered on 10/25/16 09:36; Admin Dose 20 MG; Start 10/22/16 at 09:00 Ferrous Sulfate (Ferrous Sulfate (Ec)) 325 mg DAILY PO Last administered on 09:36; Admin Dose 325 MG; Start 10/22/16 at 09:00 Folic Acid (Folic Acid) 1 mg DAILY PO Last administered on 10/25/16 09:35; Admin Dose 1 MG; Start 10/22/16 at 09:00 Gabapentin (Neurontin) 600 mg TID PO Last administered on 10/25/16 12:06; Admin Dose 600 MG; Start 10/21/16 at 22:30 Amlodipine Besylate (Norvasc) 10 mg DAILY PO Last administered on 10/25/16 09: 36; Admin Dose 10 MG; Start 10/21/16 at 21:30 Hydralazine HCl (Apresoline) 10 mg Q4H PRN IV SBP>150 mm Hg Last administered on 10/23/16 20:49; Admin Dose 10 MG; Start 10/21/16 at 21:30 Insulin Glargine (Lantus) 10 unit QHS SC Last administered on 10/24/16 21:04; Admin Dose 10 UNIT; Start 10/21/16 at 22:30 Ondansetron HCl (Zofran Inj) 4 mg Q4H PRN IV NAUSEA AND/OR VOMITING; Start at 21:30 Acetaminophen (Tylenol Tab) 650 mg Q6H PRN PO PAIN LEVEL 1-3 OR FEVER; Start at 21:30 Acetaminophen/ Hydrocodone Bitart ([place] (5/325)) 1 tab Q6H PRN PO MODERATE PAIN LEVEL 4-6; Start 10/21/16 at 21:30 Hydromorphone HCl (Dilaudid) 1 mg Q4H PRN IV SEVERE PAIN LEVEL 7-10 Last administered on 10/25/16 10:57; Admin Dose 1 MG; Start 10/21/16 at 21:30 Docusate Sodium (Colace) 100 mg Q12H PRN PO CONSTIPATION Last administered on 08:34; Admin Dose 100 MG; Start 10/21/16 at 21:30 Magnesium Hydroxide (Milk Of Mag) 30 ml DAILY PRN PO CONSTIPATION; Start at 21:30 Bisacodyl (Dulcolax) 5 mg DAILY PRN PO CONSTIPATION Last administered on 09:53; Admin Dose 5 MG; Start 10/21/16 at 21:30 Bisacodyl (Dulcolax Supp) 10 mg DAILY PRN [place] CONSTIPATION; Start 10/21/16 at 21 :30 Sodium Biphosphate/ Sodium Phosphate (Fleet Enema) 133 ml DAILY PRN [place] CONSTIPATION; Start 10/21/16 at 21:30 Zolpidem Tartrate (Ambien) 5 mg QHS PRN PO SLEEP; Start 10/21/16 at 21:30 Heparin Sodium (Porcine) (Heparin (5000 Units/0.5 ml)) 5,000 unit Q12 SC Last administered on 10/23/16 08:23; Admin Dose 5,000 UNIT; Start 10/21/16 at 22:30 ; Status Future Hold Famotidine (Pepcid) 20 mg DAILY PO Last administered on 10/25/16 09:35; Admin Dose 20 MG; Start 10/23/16 at 09:00 Carvedilol (Coreg) 25 mg BID PO Last administered on 10/25/16 09:53; Admin Dose 25 MG; Start 10/23/16 at 21:00 Epoetin Jeremy (Epogen (Esrd)) 10,000 units Th@17 SC Last administered on 21:41; Admin Dose 10,000 UNITS; Start 10/23/16 at 20:07 Miscellaneous Information 1 ea NOTE XX ; Start 10/24/16 at 10:00 Glucose (Glutose) 15 gm Q15M PRN PO DECREASED GLUCOSE; Start 10/24/16 at 10:00 Glucose (Glutose) 22.5 gm Q15M PRN PO DECREASED GLUCOSE; Start 10/24/16 at 10: 00 Dextrose (D50w Syringe) 25 ml Q15M PRN IV DECREASED GLUCOSE; Start 10/24/16 at 10:00 Dextrose (D50w Syringe) 50 ml Q15M PRN IV DECREASED GLUCOSE; Start 10/24/16 at 10:00 Glucagon (Glucagen) 1 mg Q15M PRN IM DECREASED GLUCOSE; Start 10/24/16 at 10:00 Glucose (Glutose) 15 gm Q15M PRN BUCCAL DECREASED GLUCOSE; Start 10/24/16 at 10 :00 Hydralazine HCl (Apresoline) 25 mg Q8 PO Last administered on 10/25/16 05:30; Admin Dose 25 MG; Start 10/24/16 at 14:00 JENNY WHYTE Oct 25, 2016 13:04
--- NOTE | 2016-10-25 13:20 | CONS ---
Date/Time of Note Date/Time of Note DATE: 10/25/16 TIME: 13:19 Assessment/Plan Assessment/Plan Additional Assessment/Plan 1. Anasarca, likely secondary to worsening renal failure. 2. Acute kidney injury on chronic kidney disease secondary to prerenal azotemia and worsening diabetes mellitus. 3. Superficial vein thrombosis in left posterior tibial vein. 4. History of diabetes mellitus. 5. Hypertension with currently having accelerated hypertension, systolic blood pressure 186/103. PLAN: on lasix to 40mg BID Renal US showed Echogenic kidneys, suggestive of medical renal disease. will follow up Consultation Date/Type/Reason Admit Date/Time Oct 21, 2016 at 22:03 Type of Consultation: NEPHROLOGY Referring Provider: IKE VALIENTE MD 24 HR Interval Summary Free Text/Dictation Cr 2.3, on Lasix, doing better, BP stable Exam/Review of Systems Vital Signs Vitals Vital Signs Date Time Temp Pulse Resp B/P Pulse Ox O2 Delivery O2 Flow Rate FiO2 10/25/16 07:53 98.4 74 130/82 96 10/24/16 19:46 20 Intake and Output 10/24/16 10/24/16 10/25/16 15:00 23:00 07:00 Intake Total 2400 ml 600 ml Balance 2400 ml 600 ml Exam GENERAL: Awake, alert, HEENT: Normal. Pupils equal, round, reactive to light and accommodation. Extraocular muscles are intact. NECK: Supple, no JVD, no lymphadenopathy. LUNGS: Clear to auscultation. No crackles, no wheezes. HEART: S1, S2, with regular rhythm, no murmur. ABDOMEN: Soft, nontender, nondistended. Bowel sounds are present. EXTREMITIES: 2+ pitting edema. No clubbing, no cyanosis. NEUROLOGICAL: Cranial nerves II through XII intact. No focal deficits. PSYCHIATRIC: Appropriate affect and mood. Results Result Diagram: 10/25/16 0502 10/25/16 0502 Results 24 hrs Laboratory Tests Test 10/24/16 21:00 10/25/16 05:02 10/25/16 05:30 10/25/16 07:55 Bedside Glucose 230 H 120 White Blood Count 6.7 Red Blood Count 2.85 L Hemoglobin 8.4 L Hematocrit 26.5 L Mean Corpuscular Volume 93.0 Mean Corpuscular Hemoglobin 29.5 Mean Corpuscular Hemoglobin Concent 31.7 L Red Cell Distribution Width 13.0 Platelet Count 339 Mean Platelet Volume 8.7 Neutrophils % 41.6 Lymphocytes % 46.1 Monocytes % 9.1 Eosinophils % 2.2 Basophils % 0.6 Nucleated Red Blood Cells % 0.0 Neutrophils # 2.8 Lymphocytes # 3.1 H Monocytes # 0.6 Eosinophils # 0.2 Basophils # 0.0 Nucleated Red Blood Cells # 0.0 Sodium Level 135 Potassium Level 4.4 Chloride Level 106 Carbon Dioxide Level 27 Anion Gap 6 L Blood Urea Nitrogen 23 H Creatinine 2.30 H Glucose Level 129 Calcium Level 7.9 L Stool Occult Blood NEGATIVE Test 10/25/16 11:46 Bedside Glucose 163 Medications Medications Current Medications Aspirin (Halfprin) 81 mg DAILY PO Last administered on 10/25/16 09:36; Admin Dose 81 MG; Start 10/22/16 at 09:00 Citalopram Hydrobromide (Celexa) 20 mg DAILY PO Last administered on 10/25/16 09:36; Admin Dose 20 MG; Start 10/22/16 at 09:00 Ferrous Sulfate (Ferrous Sulfate (Ec)) 325 mg DAILY PO Last administered on 09:36; Admin Dose 325 MG; Start 10/22/16 at 09:00 Folic Acid (Folic Acid) 1 mg DAILY PO Last administered on 10/25/16 09:35; Admin Dose 1 MG; Start 10/22/16 at 09:00 Gabapentin (Neurontin) 600 mg TID PO Last administered on 10/25/16 12:06; Admin Dose 600 MG; Start 10/21/16 at 22:30 Amlodipine Besylate (Norvasc) 10 mg DAILY PO Last administered on 10/25/16 09: 36; Admin Dose 10 MG; Start 10/21/16 at 21:30 Hydralazine HCl (Apresoline) 10 mg Q4H PRN IV SBP>150 mm Hg Last administered on 10/23/16 20:49; Admin Dose 10 MG; Start 10/21/16 at 21:30 Insulin Glargine (Lantus) 10 unit QHS SC Last administered on 10/24/16 21:04; Admin Dose 10 UNIT; Start 10/21/16 at 22:30 Ondansetron HCl (Zofran Inj) 4 mg Q4H PRN IV NAUSEA AND/OR VOMITING; Start at 21:30 Acetaminophen (Tylenol Tab) 650 mg Q6H PRN PO PAIN LEVEL 1-3 OR FEVER; Start at 21:30 Acetaminophen/ Hydrocodone Bitart ([place] (5/325)) 1 tab Q6H PRN PO MODERATE PAIN LEVEL 4-6; Start 10/21/16 at 21:30 Hydromorphone HCl (Dilaudid) 1 mg Q4H PRN IV SEVERE PAIN LEVEL 7-10 Last administered on 10/25/16 10:57; Admin Dose 1 MG; Start 10/21/16 at 21:30 Docusate Sodium (Colace) 100 mg Q12H PRN PO CONSTIPATION Last administered on 08:34; Admin Dose 100 MG; Start 10/21/16 at 21:30 Magnesium Hydroxide (Milk Of Mag) 30 ml DAILY PRN PO CONSTIPATION; Start at 21:30 Bisacodyl (Dulcolax) 5 mg DAILY PRN PO CONSTIPATION Last administered on 09:53; Admin Dose 5 MG; Start 10/21/16 at 21:30 Bisacodyl (Dulcolax Supp) 10 mg DAILY PRN [place] CONSTIPATION; Start 10/21/16 at 21 :30 Sodium Biphosphate/ Sodium Phosphate (Fleet Enema) 133 ml DAILY PRN [place] CONSTIPATION; Start 10/21/16 at 21:30 Zolpidem Tartrate (Ambien) 5 mg QHS PRN PO SLEEP; Start 10/21/16 at 21:30 Heparin Sodium (Porcine) (Heparin (5000 Units/0.5 ml)) 5,000 unit Q12 SC Last administered on 10/23/16 08:23; Admin Dose 5,000 UNIT; Start 10/21/16 at 22:30 ; Status Future Hold Famotidine (Pepcid) 20 mg DAILY PO Last administered on 10/25/16 09:35; Admin Dose 20 MG; Start 10/23/16 at 09:00 Carvedilol (Coreg) 25 mg BID PO Last administered on 10/25/16 09:53; Admin Dose 25 MG; Start 10/23/16 at 21:00 Epoetin Jeremy (Epogen (Esrd)) 10,000 units Th@17 SC Last administered on 21:41; Admin Dose 10,000 UNITS; Start 10/23/16 at 20:07 Miscellaneous Information 1 ea NOTE XX ; Start 10/24/16 at 10:00 Glucose (Glutose) 15 gm Q15M PRN PO DECREASED GLUCOSE; Start 10/24/16 at 10:00 Glucose (Glutose) 22.5 gm Q15M PRN PO DECREASED GLUCOSE; Start 10/24/16 at 10: 00 Dextrose (D50w Syringe) 25 ml Q15M PRN IV DECREASED GLUCOSE; Start 10/24/16 at 10:00 Dextrose (D50w Syringe) 50 ml Q15M PRN IV DECREASED GLUCOSE; Start 10/24/16 at 10:00 Glucagon (Glucagen) 1 mg Q15M PRN IM DECREASED GLUCOSE; Start 10/24/16 at 10:00 Glucose (Glutose) 15 gm Q15M PRN BUCCAL DECREASED GLUCOSE; Start 10/24/16 at 10 :00 Hydralazine HCl (Apresoline) 25 mg Q8 PO Last administered on 10/25/16 05:30; Admin Dose 25 MG; Start 10/24/16 at 14:00 EMILY OVIEDO MD Oct 25, 2016 13:20
--- NOTE | 2016-10-25 16:08 | PN ---
DATE: 10/25/2016 CARDIOLOGY FOLLOWUP COMPLAINTS: The patient has no complaints. No chest pain or shortness of breath. He mentioned oksana t his leg edema is getting better. REVIEW OF SYSTEMS: Unchanged from before. PHYSICAL EXAMINATION: GENERAL: He is conscious, alert and oriented. Appears to be in no acute distress. VITAL SIGNS: Blood pressure is 130/82. Heart rate is 74. Temperature 98.4 degrees Fahrenheit. HEENT: Head is normocephalic. Face: No xanthelasma. No facial droop. NECK: JVP not raised. CHEST: Bilaterally symmetrical and nontender. HEART: PMI localized in the fourth intercostal space. S1 and S2 are regular. A II/ systolic mur mur is heard at the apex. LUNGS: Clear to percussion and auscultation. ABDOMEN: Soft and nontender belly without any organomegaly. Moderate obesity is noticed. EXTREMITIES: Reveal 2+ leg edema. LABORATORY DATA: So far reveals a white count of 6.7, hemoglobin 8.4 slightly better than yesterday , platelet count is normal at 239,000. BUN and creatinine are 23 and 2.30, respectively. IMPRESSION: 1. Hypertension which is better controlled right now. 2. Lower extremity edema probably secondary to his deep venous thrombosis. 3. Renal insufficiency. 4. Dyslipidemia. 5. Mild mitral, mild tricuspid and mild pulmonic regurgitation with mild pulmonary hypertension by echocardiographic study with a normal ejection fraction in the office. RECOMMENDATIONS: We will continue same treatment cardiologically. We will continue with Lasix with close monitoring of the renal function. Dr. Kenney Ulrich has already seen the patient from a neph rology standpoint. Dictated By: AVA BOWIE MD, RA/DENEEN Conf#: [id number] DID#: [id number]
[2016-10-25 20:00] VITALS: BP 145/87; PULSE 69; RESP 18
[2016-10-25] MEDS: INSULIN GLARGINE [LANtus] 3 ML PEN SC SCH (21:20)
[2016-10-26 06:02] LABS: ADD SCAN DIFF NO
[2016-10-26 06:08] LABS: BASOPHIL # 0.1 10^3/ul (0.0-0.1); BASOPHILS % 0.7 % (0.0-2.0); EOSINOPHILS # 0.2 10^3/ul (0.0-0.5); EOSINOPHILS % 2.9 % (0.0-7.0); HEMATOCRIT 27.6 % (42.0-52.0); HEMOGLOBIN 8.4 g/dl (14.0-18.0); LYMPHOCYTES # 3.5 10^3/ul (0.8-2.9); LYMPHOCYTES % 47.7 % (15.0-51.0); MEAN CORPUSCULAR HEMOGLOBIN 28.6 pg (29.0-33.0); MEAN CORPUSCULAR HGB CONC 30.4 g/dl (32.0-37.0); MEAN CORPUSCULAR VOLUME 93.9 fl (82.0-101.0); MEAN PLATELET VOLUME 9.1 fl (7.4-10.4); MONOCYTE # 0.7 10^3/ul (0.3-0.9); MONOCYTES % 8.9 % (0.0-11.0); NEUTROPHIL # 2.9 10^3/ul (1.6-7.5); NEUTROPHILS % 39.4 % (39.0-77.0); PLATELET COUNT 353 10^3/UL (140-415); RED BLOOD COUNT 2.94 10^6/ul (4.70-6.10); WHITE BLOOD COUNT 7.3 10^3/ul (4.8-10.8)
[2016-10-26 06:17] LABS: POTASSIUM 4.5 mmol/L (3.5-5.1)
[2016-10-26 06:20] LABS: CREATININE 2.18 mg/dl (0.61-1.24)
[2016-10-26 06:21] LABS: CALCIUM 7.8 mg/dl (8.4-10.2)
[2016-10-26] MEDS: FUROSEMIDE 40 MG TAB PO SCH ×2 (06:24→16:57)
[2016-10-26] MEDS: HYDROmorphONE 1 MG/ML SYG IV PRN ×5 (06:25→23:09)
[2016-10-26 07:42] VITALS: BP 132/77; RESP 18
[2016-10-26] MEDS: INSULIN ASPART [NOVOLOG] 3 ML PEN SC SCH ×4 (08:15→20:49)
[2016-10-26] MEDS: GABAPENTIN 300 MG CAP PO SCH ×3 (08:18→20:41)
[2016-10-26] MEDS: FERROUS SULFATE (EC) 325 MG TAB PO SCH (08:19)
[2016-10-26] MEDS: AMLODIPINE 5 MG TAB PO SCH (08:19)
[2016-10-26] MEDS: ASPIRIN (EC) 81 MG TAB PO SCH (08:19)
[2016-10-26] MEDS: CITALOPRAM 20 MG TAB PO SCH (08:19)
[2016-10-26] MEDS: FAMOTIDINE 20 MG TAB PO SCH (08:19)
[2016-10-26] MEDS: FOLIC ACID 1 MG TAB PO SCH (08:19)
--- NOTE | 2016-10-26 11:33 | CONS ---
Date/Time of Note Date/Time of Note DATE: 10/26/16 TIME: 11:31 Assessment/Plan Assessment/Plan Additional Assessment/Plan 1. Anasarca, likely secondary to worsening renal failure. 2. Acute kidney injury on chronic kidney disease secondary to prerenal azotemia and worsening diabetes mellitus. 3. Superficial vein thrombosis in left posterior tibial vein. 4. History of diabetes mellitus. 5. Hypertension with currently having accelerated hypertension, systolic blood pressure 186/103. PLAN: on lasix to 40mg BID,C r slightly improved to 2.18 Renal US showed Echogenic kidneys, suggestive of medical renal disease. will follow up will hold off on ACEI/ARB due to Elevated Creatinine will follow up Consultation Date/Type/Reason Admit Date/Time Oct 21, 2016 at 22:03 Type of Consultation: NEPHROLOGY Referring Provider: IKE VALIENTE MD 24 HR Interval Summary Free Text/Dictation Na 132, Cr improved to 2.18 Exam/Review of Systems Vital Signs Vitals Vital Signs Date Time Temp Pulse Resp B/P Pulse Ox O2 Delivery O2 Flow Rate FiO2 10/26/16 07:42 98.5 67 18 132/77 98 10/25/16 20:00 Room Air Intake and Output 10/25/16 10/25/16 10/26/16 15:00 23:00 07:00 Intake Total 3100 ml 500 ml Balance 3100 ml 500 ml Exam GENERAL: Awake, alert, HEENT: Normal. Pupils equal, round, reactive to light and accommodation. Extraocular muscles are intact. NECK: Supple, no JVD, no lymphadenopathy. LUNGS: Clear to auscultation. No crackles, no wheezes. HEART: S1, S2, with regular rhythm, no murmur. ABDOMEN: Soft, nontender, nondistended. Bowel sounds are present. EXTREMITIES: 2+ pitting edema. No clubbing, no cyanosis. NEUROLOGICAL: Cranial nerves II through XII intact. No focal deficits. PSYCHIATRIC: Appropriate affect and mood. Results Result Diagram: 10/26/16 0509 10/26/16 0509 Results 24 hrs Laboratory Tests Test 10/25/16 11:46 10/25/16 14:00 10/25/16 17:28 10/25/16 21:16 Bedside Glucose 163 129 224 H Stool Occult Blood NEGATIVE Test 10/26/16 05:09 10/26/16 08:17 10/26/16 10:24 White Blood Count 7.3 Red Blood Count 2.94 L Hemoglobin 8.4 L Hematocrit 27.6 L Mean Corpuscular Volume 93.9 Mean Corpuscular Hemoglobin 28.6 L Mean Corpuscular Hemoglobin Concent 30.4 L Red Cell Distribution Width 13.0 Platelet Count 353 Mean Platelet Volume 9.1 Neutrophils % 39.4 Lymphocytes % 47.7 Monocytes % 8.9 Eosinophils % 2.9 Basophils % 0.7 Nucleated Red Blood Cells % 0.0 Neutrophils # 2.9 Lymphocytes # 3.5 H Monocytes # 0.7 Eosinophils # 0.2 Basophils # 0.1 Nucleated Red Blood Cells # 0.0 Sodium Level 132 L Potassium Level 4.5 Chloride Level 105 Carbon Dioxide Level 27 Anion Gap 5 L Blood Urea Nitrogen 25 H Creatinine 2.18 H Glucose Level 129 Calcium Level 7.8 L Bedside Glucose 122 Lab Scanned Report REFERENCE LAB Medications Medications Current Medications Aspirin (Halfprin) 81 mg DAILY PO Last administered on 10/26/16 08:19; Admin Dose 81 MG; Start 10/22/16 at 09:00 Citalopram Hydrobromide (Celexa) 20 mg DAILY PO Last administered on 10/26/16 08:19; Admin Dose 20 MG; Start 10/22/16 at 09:00 Ferrous Sulfate (Ferrous Sulfate (Ec)) 325 mg DAILY PO Last administered on 08:19; Admin Dose 325 MG; Start 10/22/16 at 09:00 Folic Acid (Folic Acid) 1 mg DAILY PO Last administered on 10/26/16 08:19; Admin Dose 1 MG; Start 10/22/16 at 09:00 Gabapentin (Neurontin) 600 mg TID PO Last administered on 10/26/16 08:18; Admin Dose 600 MG; Start 10/21/16 at 22:30 Hydralazine HCl (Apresoline) 10 mg Q4H PRN IV SBP>150 mm Hg Last administered on 10/23/16 20:49; Admin Dose 10 MG; Start 10/21/16 at 21:30 Insulin Glargine (Lantus) 10 unit QHS SC Last administered on 10/25/16 21:20; Admin Dose 10 UNIT; Start 10/21/16 at 22:30 Ondansetron HCl (Zofran Inj) 4 mg Q4H PRN IV NAUSEA AND/OR VOMITING; Start at 21:30 Acetaminophen (Tylenol Tab) 650 mg Q6H PRN PO PAIN LEVEL 1-3 OR FEVER; Start at 21:30 Acetaminophen/ Hydrocodone Bitart ([place] (5/325)) 1 tab Q6H PRN PO MODERATE PAIN LEVEL 4-6; Start 10/21/16 at 21:30 Hydromorphone HCl (Dilaudid) 1 mg Q4H PRN IV SEVERE PAIN LEVEL 7-10 Last administered on 10/26/16 10:46; Admin Dose 1 MG; Start 10/21/16 at 21:30 Docusate Sodium (Colace) 100 mg Q12H PRN PO CONSTIPATION Last administered on 08:34; Admin Dose 100 MG; Start 10/21/16 at 21:30 Magnesium Hydroxide (Milk Of Mag) 30 ml DAILY PRN PO CONSTIPATION; Start at 21:30 Bisacodyl (Dulcolax) 5 mg DAILY PRN PO CONSTIPATION Last administered on 09:53; Admin Dose 5 MG; Start 10/21/16 at 21:30 Bisacodyl (Dulcolax Supp) 10 mg DAILY PRN [place] CONSTIPATION; Start 10/21/16 at 21 :30 Sodium Biphosphate/ Sodium Phosphate (Fleet Enema) 133 ml DAILY PRN [place] CONSTIPATION; Start 10/21/16 at 21:30 Zolpidem Tartrate (Ambien) 5 mg QHS PRN PO SLEEP; Start 10/21/16 at 21:30 Heparin Sodium (Porcine) (Heparin (5000 Units/0.5 ml)) 5,000 unit Q12 SC Last administered on 10/23/16 08:23; Admin Dose 5,000 UNIT; Start 10/21/16 at 22:30 ; Status Future Hold Famotidine (Pepcid) 20 mg DAILY PO Last administered on 10/26/16 08:19; Admin Dose 20 MG; Start 10/23/16 at 09:00 Carvedilol (Coreg) 25 mg BID PO Last administered on 10/26/16 08:19; Admin Dose 25 MG; Start 10/23/16 at 21:00 Epoetin Jeremy (Epogen (Esrd)) 10,000 units @17 SC Last administered on 21:41; Admin Dose 10,000 UNITS; Start 10/23/16 at 20:07 Miscellaneous Information 1 ea NOTE XX ; Start 10/24/16 at 10:00 Glucose (Glutose) 15 gm Q15M PRN PO DECREASED GLUCOSE; Start 10/24/16 at 10:00 Glucose (Glutose) 22.5 gm Q15M PRN PO DECREASED GLUCOSE; Start 10/24/16 at 10: 00 Dextrose (D50w Syringe) 25 ml Q15M PRN IV DECREASED GLUCOSE; Start 10/24/16 at 10:00 Dextrose (D50w Syringe) 50 ml Q15M PRN IV DECREASED GLUCOSE; Start 10/24/16 at 10:00 Glucagon (Glucagen) 1 mg Q15M PRN IM DECREASED GLUCOSE; Start 10/24/16 at 10:00 Glucose (Glutose) 15 gm Q15M PRN BUCCAL DECREASED GLUCOSE; Start 10/24/16 at 10 :00 Hydralazine HCl (Apresoline) 50 mg TID PO Last administered on 10/26/16 08:20 ; Admin Dose 50 MG; Start 10/26/16 at 09:00 Amlodipine Besylate (Norvasc) 5 mg DAILY PO Last administered on 10/26/16 08: 19; Admin Dose 5 MG; Start 10/26/16 at 09:00 EMILY OVIEDO MD Oct 26, 2016 11:33
--- NOTE | 2016-10-26 13:41 | PN ---
DATE: 10/26/2016 SUBJECTIVE: On question the patient has no chest pain, no shortness of breath. He mentions his edema is getting better and he is sitting in a chair on the bedside. OBJECTIVE: VITAL SIGNS: Blood pressure 45/87 which is slightly elevated this morning. The last blood pressure b efore this was 130/82. NECK: JVP not raised. Carotid pulses reveal nonobstruction CHEST: Bilateral asymmetry. HEART: S1, S2 regular. II/ systolic murmur heard over the apex. LUNGS: Clear to percussion and auscultation. ABDOMEN: Soft, nontender belly. Bowel sounds present, although, not palpable. No organomegaly. EXTREMITIES: Still 1+ edema on the legs. LABORATORY: Today, white count is 7.3 with hemoglobin is stable at 8.4 and platelet is 10 to 53,000 . BUN and creatinine is 225 and 2.18 respectively with depression of 4.5. IMPRESSION: 1. Hypertension fairly well-controlled, lightly elevated this morning. 2. Edema, legs. Normal ejection fraction with mild mitral and mild tricuspid and mild pulmonic reg urgitation and mild pulmonary hypertension. 3. History of hyperlipidemia. 4. Renal insufficiency. RECOMMENDATION: Continue hydralazine as before along with Lasix and Coreg. Would recommend decreas ing the amlodipine from 10 mg a day to 5 mg a day because of the edema and will increase the hydrala zine from 25 mg every 8 hours to 50 mg every 8 hours. Dictated By: AVA BOWIE MD, RA/DENEEN Conf#: [id number] DID#: [id number]
--- NOTE | 2016-10-26 16:19 | PN ---
Date/Time of Note Date/Time of Note DATE: 10/26/16 TIME: 16:16 Assessment/Plan VTE Prophylaxis VTE Prophylaxis Intervention: other Lines/Catheters IV Catheter Type (from Nrs): Saline Lock Assessment/Plan Assessment/Plan - Bilateral lower extremities edema and anasarca secondary to worsening renal failure. - Accelerated hypertension. Continue patient on Coreg, Norvasc, hydralazine. - per Dr. Casey will be following patient in cardiology consultation. - Left posterior tibial vein thrombus. Continue warm compress. We will continue heparin. We will reevaluate left lower extremity ultrasound in 5 days. - Diabetes mellitus type 2. Continue 1800 ADA 2 g sodium, low fat, low cholesterol diet. Continue Lantus and NovoLog per moderate algorithm sliding scale. We will obtain hemoglobin A1c. - Acute kidney injury on chronic kidney disease. Dr. Ulrich is following in nephrology consultation. - Obesity. Weight loss advised.-. Iron deficiency anemia. Continue iron supplements. Continue heparin, follow deep venous thrombosis prophylaxis and Pepcid for peptic ulcer disease prophylaxis. Further recommendations based on clinical course. Plan of care discussed with Dr. Clark. Subjective 24 Hr Interval Summary Constitutional: improved Eyes: no complaints ENT: no complaints Respiratory: no complaints Cardiovascular: no complaints Gastrointestinal: no complaints Genitourinary: no complaints Musculoskeletal: no complaints Skin: no complaints Neurologic: no complaints Endocrine: no complaints Lymphatic: no complaints Psychological: no complaints Exam/Review of Systems Vital Signs Vitals Vital Signs Date Time Temp Pulse Resp B/P Pulse Ox O2 Delivery O2 Flow Rate FiO2 10/26/16 07:42 98.5 67 18 132/77 98 10/25/16 20:00 Room Air Intake and Output 10/25/16 10/25/16 10/26/16 15:00 23:00 07:00 Intake Total 3100 ml 500 ml Balance 3100 ml 500 ml Exam Constitutional: alert Psych: nl mood/affect Head: atraumatic Eyes: EOMI ENMT: nl external ears & nose Neck: non-tender Respiratory: clear to auscultation Cardiovascular: nl pulses Gastrointestinal: non-tender, soft Musculoskeletal: nl extremities to inspection Extremities: normal pulses Neurological: nl mental status, nl speech Skin: nl turgor Lymph: nl lymph nodes Results Result Diagram: 10/26/16 0509 10/26/16 0509 Results 24 hrs Laboratory Tests Test 10/25/16 17:28 10/25/16 21:16 10/26/16 05:09 10/26/16 08:17 Bedside Glucose 129 224 H 122 White Blood Count 7.3 Red Blood Count 2.94 L Hemoglobin 8.4 L Hematocrit 27.6 L Mean Corpuscular Volume 93.9 Mean Corpuscular Hemoglobin 28.6 L Mean Corpuscular Hemoglobin Concent 30.4 L Red Cell Distribution Width 13.0 Platelet Count 353 Mean Platelet Volume 9.1 Neutrophils % 39.4 Lymphocytes % 47.7 Monocytes % 8.9 Eosinophils % 2.9 Basophils % 0.7 Nucleated Red Blood Cells % 0.0 Neutrophils # 2.9 Lymphocytes # 3.5 H Monocytes # 0.7 Eosinophils # 0.2 Basophils # 0.1 Nucleated Red Blood Cells # 0.0 Sodium Level 132 L Potassium Level 4.5 Chloride Level 105 Carbon Dioxide Level 27 Anion Gap 5 L Blood Urea Nitrogen 25 H Creatinine 2.18 H Glucose Level 129 Calcium Level 7.8 L Test 10/26/16 10:24 10/26/16 11:50 Lab Scanned Report REFERENCE LAB Bedside Glucose 158 Medications Medications Current Medications Aspirin (Halfprin) 81 mg DAILY PO Last administered on 10/26/16 08:19; Admin Dose 81 MG; Start 10/22/16 at 09:00 Citalopram Hydrobromide (Celexa) 20 mg DAILY PO Last administered on 10/26/16 08:19; Admin Dose 20 MG; Start 10/22/16 at 09:00 Ferrous Sulfate (Ferrous Sulfate (Ec)) 325 mg DAILY PO Last administered on 08:19; Admin Dose 325 MG; Start 10/22/16 at 09:00 Folic Acid (Folic Acid) 1 mg DAILY PO Last administered on 10/26/16 08:19; Admin Dose 1 MG; Start 10/22/16 at 09:00 Gabapentin (Neurontin) 600 mg TID PO Last administered on 10/26/16 12:09; Admin Dose 600 MG; Start 10/21/16 at 22:30 Hydralazine HCl (Apresoline) 10 mg Q4H PRN IV SBP>150 mm Hg Last administered on 10/23/16 20:49; Admin Dose 10 MG; Start 10/21/16 at 21:30 Insulin Glargine (Lantus) 10 unit QHS SC Last administered on 10/25/16 21:20; Admin Dose 10 UNIT; Start 10/21/16 at 22:30 Ondansetron HCl (Zofran Inj) 4 mg Q4H PRN IV NAUSEA AND/OR VOMITING; Start at 21:30 Acetaminophen (Tylenol Tab) 650 mg Q6H PRN PO PAIN LEVEL 1-3 OR FEVER; Start at 21:30 Acetaminophen/ Hydrocodone Bitart ([place] (5/325)) 1 tab Q6H PRN PO MODERATE PAIN LEVEL 4-6; Start 10/21/16 at 21:30 Hydromorphone HCl (Dilaudid) 1 mg Q4H PRN IV SEVERE PAIN LEVEL 7-10 Last administered on 10/26/16 14:43; Admin Dose 1 MG; Start 10/21/16 at 21:30 Docusate Sodium (Colace) 100 mg Q12H PRN PO CONSTIPATION Last administered on 08:34; Admin Dose 100 MG; Start 10/21/16 at 21:30 Magnesium Hydroxide (Milk Of Mag) 30 ml DAILY PRN PO CONSTIPATION; Start at 21:30 Bisacodyl (Dulcolax) 5 mg DAILY PRN PO CONSTIPATION Last administered on 09:53; Admin Dose 5 MG; Start 10/21/16 at 21:30 Bisacodyl (Dulcolax Supp) 10 mg DAILY PRN [place] CONSTIPATION; Start 10/21/16 at 21 :30 Sodium Biphosphate/ Sodium Phosphate (Fleet Enema) 133 ml DAILY PRN [place] CONSTIPATION; Start 10/21/16 at 21:30 Zolpidem Tartrate (Ambien) 5 mg QHS PRN PO SLEEP; Start 10/21/16 at 21:30 Heparin Sodium (Porcine) (Heparin (5000 Units/0.5 ml)) 5,000 unit Q12 SC Last administered on 10/23/16 08:23; Admin Dose 5,000 UNIT; Start 10/21/16 at 22:30 ; Status Future Hold Famotidine (Pepcid) 20 mg DAILY PO Last administered on 10/26/16 08:19; Admin Dose 20 MG; Start 10/23/16 at 09:00 Carvedilol (Coreg) 25 mg BID PO Last administered on 10/26/16 08:19; Admin Dose 25 MG; Start 10/23/16 at 21:00 Epoetin Jeremy (Epogen (Esrd)) 10,000 units Th@17 SC Last administered on 21:41; Admin Dose 10,000 UNITS; Start 10/23/16 at 20:07 Miscellaneous Information 1 ea NOTE XX ; Start 10/24/16 at 10:00 Glucose (Glutose) 15 gm Q15M PRN PO DECREASED GLUCOSE; Start 10/24/16 at 10:00 Glucose (Glutose) 22.5 gm Q15M PRN PO DECREASED GLUCOSE; Start 10/24/16 at 10: 00 Dextrose (D50w Syringe) 25 ml Q15M PRN IV DECREASED GLUCOSE; Start 10/24/16 at 10:00 Dextrose (D50w Syringe) 50 ml Q15M PRN IV DECREASED GLUCOSE; Start 10/24/16 at 10:00 Glucagon (Glucagen) 1 mg Q15M PRN IM DECREASED GLUCOSE; Start 10/24/16 at 10:00 Glucose (Glutose) 15 gm Q15M PRN BUCCAL DECREASED GLUCOSE; Start 10/24/16 at 10 :00 Hydralazine HCl (Apresoline) 50 mg TID PO Last administered on 10/26/16 12:09 ; Admin Dose 50 MG; Start 10/26/16 at 09:00 Amlodipine Besylate (Norvasc) 5 mg DAILY PO Last administered on 10/26/16 08: 19; Admin Dose 5 MG; Start 10/26/16 at 09:00 JENNY WHYTE Oct 26, 2016 16:19
[2016-10-26 19:54] VITALS: BP 143/79; RESP 20
[2016-10-26] MEDS: INSULIN GLARGINE [LANtus] 3 ML PEN SC SCH (20:50)
[2016-10-27] MEDS: HYDROmorphONE 1 MG/ML SYG IV PRN ×4 (05:27→19:32)
[2016-10-27] MEDS: FUROSEMIDE 40 MG TAB PO SCH ×2 (05:28→16:50)
[2016-10-27 06:03] LABS: ADD SCAN DIFF NO
[2016-10-27 06:20] LABS: BASOPHIL # 0.1 10^3/ul (0.0-0.1); BASOPHILS % 0.7 % (0.0-2.0); EOSINOPHILS # 0.2 10^3/ul (0.0-0.5); EOSINOPHILS % 2.6 % (0.0-7.0); HEMATOCRIT 29.5 % (42.0-52.0); HEMOGLOBIN 9.1 g/dl (14.0-18.0); LYMPHOCYTES # 3.7 10^3/ul (0.8-2.9); LYMPHOCYTES % 50.8 % (15.0-51.0); MEAN CORPUSCULAR HEMOGLOBIN 29.2 pg (29.0-33.0); MEAN CORPUSCULAR HGB CONC 30.8 g/dl (32.0-37.0); MEAN CORPUSCULAR VOLUME 94.6 fl (82.0-101.0); MEAN PLATELET VOLUME 8.7 fl (7.4-10.4); MONOCYTE # 0.6 10^3/ul (0.3-0.9); MONOCYTES % 7.7 % (0.0-11.0); NEUTROPHIL # 2.8 10^3/ul (1.6-7.5); NEUTROPHILS % 37.9 % (39.0-77.0); PLATELET COUNT 395 10^3/UL (140-415); RED BLOOD COUNT 3.12 10^6/ul (4.70-6.10); WHITE BLOOD COUNT 7.4 10^3/ul (4.8-10.8)
[2016-10-27 06:49] LABS: POTASSIUM 4.8 mmol/L (3.5-5.1)
[2016-10-27 06:52] LABS: CREATININE 2.36 mg/dl (0.61-1.24)
[2016-10-27 06:53] LABS: CALCIUM 8.1 mg/dl (8.4-10.2)
[2016-10-27 07:56] VITALS: BP 143/85; RESP 18
[2016-10-27] MEDS: INSULIN ASPART [NOVOLOG] 3 ML PEN SC SCH ×4 (08:12→20:54)
[2016-10-27] MEDS: FAMOTIDINE 20 MG TAB PO SCH (08:13)
[2016-10-27] MEDS: AMLODIPINE 5 MG TAB PO SCH (08:13)
[2016-10-27] MEDS: GABAPENTIN 300 MG CAP PO SCH ×3 (08:13→20:53)
[2016-10-27] MEDS: FERROUS SULFATE (EC) 325 MG TAB PO SCH (08:13)
[2016-10-27] MEDS: CITALOPRAM 20 MG TAB PO SCH (08:13)
[2016-10-27] MEDS: FOLIC ACID 1 MG TAB PO SCH (08:14)
[2016-10-27] MEDS: ASPIRIN (EC) 81 MG TAB PO SCH (08:14)
[2016-10-27] MEDS: HYDROCODONE/APAP (5/325) TAB PO PRN ×2 (08:32→16:49)
--- NOTE | 2016-10-27 10:50 | CONS ---
Date/Time of Note Date/Time of Note DATE: 10/27/16 TIME: 10:49 Assessment/Plan Assessment/Plan Additional Assessment/Plan 1. Anasarca, likely secondary to worsening renal failure. 2. Acute kidney injury on chronic kidney disease secondary to prerenal azotemia and worsening diabetes mellitus. 3. Superficial vein thrombosis in left posterior tibial vein. 4. History of diabetes mellitus. 5. Hypertension with currently having accelerated hypertension, systolic blood pressure 186/103. PLAN: on lasix to 40mg BID,Cr 2.36 Renal US showed Echogenic kidneys, suggestive of medical renal disease. will hold off on ACEI/ARB due to Elevated Creatinine will follow up Consultation Date/Type/Reason Admit Date/Time Oct 21, 2016 at 22:03 Type of Consultation: NEPHROLOGY Referring Provider: IKE VALIENTE MD 24 HR Interval Summary Free Text/Dictation Cr 2.36, BP stable, edema improving with lasix Exam/Review of Systems Vital Signs Vitals Vital Signs Date Time Temp Pulse Resp B/P Pulse Ox O2 Delivery O2 Flow Rate FiO2 10/27/16 07:56 97.7 73 18 143/85 97 10/25/16 20:00 Room Air Intake and Output 10/26/16 10/26/16 10/27/16 15:00 23:00 07:00 Intake Total 3520 ml 560 ml Balance 3520 ml 560 ml Exam GENERAL: Awake, alert, HEENT: Normal. Pupils equal, round, reactive to light and accommodation. Extraocular muscles are intact. NECK: Supple, no JVD, no lymphadenopathy. LUNGS: Clear to auscultation. No crackles, no wheezes. HEART: S1, S2, with regular rhythm, no murmur. ABDOMEN: Soft, nontender, nondistended. Bowel sounds are present. EXTREMITIES: 2+ pitting edema. No clubbing, no cyanosis. NEUROLOGICAL: Cranial nerves II through XII intact. No focal deficits. PSYCHIATRIC: Appropriate affect and mood. Results Result Diagram: 10/27/1651710/27/1618 Results 24 hrs Laboratory Tests Test 10/26/16 11:50 10/26/16 16:56 10/26/16 20:37 10/27/16 05:18 Bedside Glucose 158 148 181 White Blood Count 7.4 Red Blood Count 3.12 L Hemoglobin 9.1 L Hematocrit 29.5 L Mean Corpuscular Volume 94.6 Mean Corpuscular Hemoglobin 29.2 Mean Corpuscular Hemoglobin Concent 30.8 L Red Cell Distribution Width 13.0 Platelet Count 395 Mean Platelet Volume 8.7 Neutrophils % 37.9 L Lymphocytes % 50.8 Monocytes % 7.7 Eosinophils % 2.6 Basophils % 0.7 Nucleated Red Blood Cells % 0.0 Neutrophils # 2.8 Lymphocytes # 3.7 H Monocytes # 0.6 Eosinophils # 0.2 Basophils # 0.1 Nucleated Red Blood Cells # 0.0 Sodium Level 134 L Potassium Level 4.8 Chloride Level 104 Carbon Dioxide Level 29 Anion Gap 6 L Blood Urea Nitrogen 27 H Creatinine 2.36 H Glucose Level 128 Calcium Level 8.1 L Test 10/27/16 07:46 Bedside Glucose 140 Medications Medications Current Medications Aspirin (Halfprin) 81 mg DAILY PO Last administered on 10/27/16 08:14; Admin Dose 81 MG; Start 10/22/16 at 09:00 Citalopram Hydrobromide (Celexa) 20 mg DAILY PO Last administered on 10/27/16 08:13; Admin Dose 20 MG; Start 10/22/16 at 09:00 Ferrous Sulfate (Ferrous Sulfate (Ec)) 325 mg DAILY PO Last administered on 08:13; Admin Dose 325 MG; Start 10/22/16 at 09:00 Folic Acid (Folic Acid) 1 mg DAILY PO Last administered on 10/27/16 08:14; Admin Dose 1 MG; Start 10/22/16 at 09:00 Gabapentin (Neurontin) 600 mg TID PO Last administered on 10/27/16 08:13; Admin Dose 600 MG; Start 10/21/16 at 22:30 Hydralazine HCl (Apresoline) 10 mg Q4H PRN IV SBP>150 mm Hg Last administered on 10/23/16 20:49; Admin Dose 10 MG; Start 10/21/16 at 21:30 Insulin Glargine (Lantus) 10 unit QHS SC Last administered on 10/26/16 20:50; Admin Dose 10 UNIT; Start 10/21/16 at 22:30 Ondansetron HCl (Zofran Inj) 4 mg Q4H PRN IV NAUSEA AND/OR VOMITING; Start at 21:30 Acetaminophen (Tylenol Tab) 650 mg Q6H PRN PO PAIN LEVEL 1-3 OR FEVER; Start at 21:30 Acetaminophen/ Hydrocodone Bitart ([place] (5/325)) 1 tab Q6H PRN PO MODERATE PAIN LEVEL 4-6 Last administered on 10/27/16 08:32; Admin Dose 1 TAB; Start at 21:30 Hydromorphone HCl (Dilaudid) 1 mg Q4H PRN IV SEVERE PAIN LEVEL 7-10 Last administered on 10/27/16 09:44; Admin Dose 1 MG; Start 10/21/16 at 21:30 Docusate Sodium (Colace) 100 mg Q12H PRN PO CONSTIPATION Last administered on 08:34; Admin Dose 100 MG; Start 10/21/16 at 21:30 Magnesium Hydroxide (Milk Of Mag) 30 ml DAILY PRN PO CONSTIPATION; Start at 21:30 Bisacodyl (Dulcolax) 5 mg DAILY PRN PO CONSTIPATION Last administered on 09:53; Admin Dose 5 MG; Start 10/21/16 at 21:30 Bisacodyl (Dulcolax Supp) 10 mg DAILY PRN [place] CONSTIPATION; Start 10/21/16 at 21 :30 Sodium Biphosphate/ Sodium Phosphate (Fleet Enema) 133 ml DAILY PRN [place] CONSTIPATION; Start 10/21/16 at 21:30 Zolpidem Tartrate (Ambien) 5 mg QHS PRN PO SLEEP; Start 10/21/16 at 21:30 Heparin Sodium (Porcine) (Heparin (5000 Units/0.5 ml)) 5,000 unit Q12 SC Last administered on 10/23/16 08:23; Admin Dose 5,000 UNIT; Start 10/21/16 at 22:30 ; Status Future Hold Famotidine (Pepcid) 20 mg DAILY PO Last administered on 10/27/16 08:13; Admin Dose 20 MG; Start 10/23/16 at 09:00 Carvedilol (Coreg) 25 mg BID PO Last administered on 10/27/16 08:13; Admin Dose 25 MG; Start 10/23/16 at 21:00 Epoetin Jeremy (Epogen (Esrd)) 10,000 units Th@17 SC Last administered on 21:41; Admin Dose 10,000 UNITS; Start 10/23/16 at 20:07 Miscellaneous Information 1 ea NOTE XX ; Start 10/24/16 at 10:00 Glucose (Glutose) 15 gm Q15M PRN PO DECREASED GLUCOSE; Start 10/24/16 at 10:00 Glucose (Glutose) 22.5 gm Q15M PRN PO DECREASED GLUCOSE; Start 10/24/16 at 10: 00 Dextrose (D50w Syringe) 25 ml Q15M PRN IV DECREASED GLUCOSE; Start 10/24/16 at 10:00 Dextrose (D50w Syringe) 50 ml Q15M PRN IV DECREASED GLUCOSE; Start 10/24/16 at 10:00 Glucagon (Glucagen) 1 mg Q15M PRN IM DECREASED GLUCOSE; Start 10/24/16 at 10:00 Glucose (Glutose) 15 gm Q15M PRN BUCCAL DECREASED GLUCOSE; Start 10/24/16 at 10 :00 Hydralazine HCl (Apresoline) 50 mg TID PO Last administered on 10/27/16 08:15 ; Admin Dose 50 MG; Start 10/26/16 at 09:00 Amlodipine Besylate (Norvasc) 5 mg DAILY PO Last administered on 10/27/16 08: 13; Admin Dose 5 MG; Start 10/26/16 at 09:00 EMILY OVIEDO MD Oct 27, 2016 10:50
--- NOTE | 2016-10-27 11:37 | CONS ---
Date/Time of Note Date/Time of Note DATE: 10/27/16 TIME: 11:35 Assessment/Plan Assessment/Plan Chief Complaint/Hosp Course IMPRESSION: 1. Hypertensive urgency/emergency, slowly improving on oral antihypertensives. 2. Lower extremity edema, assess for congestive heart failure.-NL EF/mild MR/TR /ND/mild PHTN by echo in office 10/2016 3. History of dyslipidemia. 4. Renal failure. 5. Diabetes mellitus. 6. Anemia. Recc: -Continue coreg/norvasc/hydralazine and hiscv9l BP closely with possible need for further uptitration -Continue asa -Continue lasix and follow volume status and renal fxn closely -Renal eval ongoing Problems: Consultation Date/Type/Reason Admit Date/Time Oct 21, 2016 at 22:03 Initial Consult Date 10/22/2016 Type of Consultation: Cardiology Reason for Consultation HTN Referring Provider: IKE VALIENTE MD Exam/Review of Systems Vital Signs Vitals Vital Signs Date Time Temp Pulse Resp B/P Pulse Ox O2 Delivery O2 Flow Rate FiO2 10/27/16 07:56 97.7 73 18 143/85 97 10/25/16 20:00 Room Air Intake and Output 10/26/16 10/26/16 10/27/16 15:00 23:00 07:00 Intake Total 3520 ml 560 ml Balance 3520 ml 560 ml Exam Review of Systems: CONSTITUTIONAL: No fevers, chills. PULMONARY: No sob CARDIOVASCULAR: No chest pain/palpitations GASTROINTESTINAL: No nausea/vomiting. GENITOURINARY: No hematuria/dysuria. MUSCULOSKELETAL: No myagias/arthalgias. PSYCHIATRIC: The patient denies depression. NEUROLOGIC: No weakness Constitutional: alert, oriented Psych: no complaints ENMT: mucosa pink and moist Neck: jvd (9 cm water), supple Respiratory: diminished breath sounds (at bases/B) Cardiovascular: regular rate and rhythm Gastrointestinal: non-tender, soft Musculoskeletal: muscle tone (normal) Extremities: pitting pedal edema (Bilateral) Neurological: other (No focal deficits) Results Result Diagram: 10/27/16 0518 10/27/16 0518 Results 24 hrs Laboratory Tests Test 10/26/16 11:50 10/26/16 16:56 10/26/16 20:37 10/27/16 05:18 Bedside Glucose 158 148 181 White Blood Count 7.4 Red Blood Count 3.12 L Hemoglobin 9.1 L Hematocrit 29.5 L Mean Corpuscular Volume 94.6 Mean Corpuscular Hemoglobin 29.2 Mean Corpuscular Hemoglobin Concent 30.8 L Red Cell Distribution Width 13.0 Platelet Count 395 Mean Platelet Volume 8.7 Neutrophils % 37.9 L Lymphocytes % 50.8 Monocytes % 7.7 Eosinophils % 2.6 Basophils % 0.7 Nucleated Red Blood Cells % 0.0 Neutrophils # 2.8 Lymphocytes # 3.7 H Monocytes # 0.6 Eosinophils # 0.2 Basophils # 0.1 Nucleated Red Blood Cells # 0.0 Sodium Level 134 L Potassium Level 4.8 Chloride Level 104 Carbon Dioxide Level 29 Anion Gap 6 L Blood Urea Nitrogen 27 H Creatinine 2.36 H Glucose Level 128 Calcium Level 8.1 L Test 10/27/16 07:46 Bedside Glucose 140 Medications Medications Current Medications Aspirin (Halfprin) 81 mg DAILY PO Last administered on 10/27/16 08:14; Admin Dose 81 MG; Start 10/22/16 at 09:00 Citalopram Hydrobromide (Celexa) 20 mg DAILY PO Last administered on 10/27/16 08:13; Admin Dose 20 MG; Start 10/22/16 at 09:00 Ferrous Sulfate (Ferrous Sulfate (Ec)) 325 mg DAILY PO Last administered on 08:13; Admin Dose 325 MG; Start 10/22/16 at 09:00 Folic Acid (Folic Acid) 1 mg DAILY PO Last administered on 10/27/16 08:14; Admin Dose 1 MG; Start 10/22/16 at 09:00 Gabapentin (Neurontin) 600 mg TID PO Last administered on 10/27/16 08:13; Admin Dose 600 MG; Start 10/21/16 at 22:30 Hydralazine HCl (Apresoline) 10 mg Q4H PRN IV SBP>150 mm Hg Last administered on 10/23/16 20:49; Admin Dose 10 MG; Start 10/21/16 at 21:30 Insulin Glargine (Lantus) 10 unit QHS SC Last administered on 10/26/16 20:50; Admin Dose 10 UNIT; Start 10/21/16 at 22:30 Ondansetron HCl (Zofran Inj) 4 mg Q4H PRN IV NAUSEA AND/OR VOMITING; Start at 21:30 Acetaminophen (Tylenol Tab) 650 mg Q6H PRN PO PAIN LEVEL 1-3 OR FEVER; Start at 21:30 Acetaminophen/ Hydrocodone Bitart ([place] (5/325)) 1 tab Q6H PRN PO MODERATE PAIN LEVEL 4-6 Last administered on 10/27/16 08:32; Admin Dose 1 TAB; Start at 21:30 Hydromorphone HCl (Dilaudid) 1 mg Q4H PRN IV SEVERE PAIN LEVEL 7-10 Last administered on 10/27/16 09:44; Admin Dose 1 MG; Start 10/21/16 at 21:30 Docusate Sodium (Colace) 100 mg Q12H PRN PO CONSTIPATION Last administered on 08:34; Admin Dose 100 MG; Start 10/21/16 at 21:30 Magnesium Hydroxide (Milk Of Mag) 30 ml DAILY PRN PO CONSTIPATION; Start at 21:30 Bisacodyl (Dulcolax) 5 mg DAILY PRN PO CONSTIPATION Last administered on 09:53; Admin Dose 5 MG; Start 10/21/16 at 21:30 Bisacodyl (Dulcolax Supp) 10 mg DAILY PRN [place] CONSTIPATION; Start 10/21/16 at 21 :30 Sodium Biphosphate/ Sodium Phosphate (Fleet Enema) 133 ml DAILY PRN [place] CONSTIPATION; Start 10/21/16 at 21:30 Zolpidem Tartrate (Ambien) 5 mg QHS PRN PO SLEEP; Start 10/21/16 at 21:30 Heparin Sodium (Porcine) (Heparin (5000 Units/0.5 ml)) 5,000 unit Q12 SC Last administered on 10/23/16 08:23; Admin Dose 5,000 UNIT; Start 10/21/16 at 22:30 ; Status Future Hold Famotidine (Pepcid) 20 mg DAILY PO Last administered on 10/27/16 08:13; Admin Dose 20 MG; Start 10/23/16 at 09:00 Carvedilol (Coreg) 25 mg BID PO Last administered on 10/27/16 08:13; Admin Dose 25 MG; Start 10/23/16 at 21:00 Epoetin Jeremy (Epogen (Esrd)) 10,000 units Th@17 SC Last administered on 21:41; Admin Dose 10,000 UNITS; Start 10/23/16 at 20:07 Miscellaneous Information 1 ea NOTE XX ; Start 10/24/16 at 10:00 Glucose (Glutose) 15 gm Q15M PRN PO DECREASED GLUCOSE; Start 10/24/16 at 10:00 Glucose (Glutose) 22.5 gm Q15M PRN PO DECREASED GLUCOSE; Start 10/24/16 at 10: 00 Dextrose (D50w Syringe) 25 ml Q15M PRN IV DECREASED GLUCOSE; Start 10/24/16 at 10:00 Dextrose (D50w Syringe) 50 ml Q15M PRN IV DECREASED GLUCOSE; Start 10/24/16 at 10:00 Glucagon (Glucagen) 1 mg Q15M PRN IM DECREASED GLUCOSE; Start 10/24/16 at 10:00 Glucose (Glutose) 15 gm Q15M PRN BUCCAL DECREASED GLUCOSE; Start 10/24/16 at 10 :00 Hydralazine HCl (Apresoline) 50 mg TID PO Last administered on 10/27/16 08:15 ; Admin Dose 50 MG; Start 10/26/16 at 09:00 Amlodipine Besylate (Norvasc) 5 mg DAILY PO Last administered on 10/27/16 08: 13; Admin Dose 5 MG; Start 10/26/16 at 09:00 RAFFY RAO Oct 27, 2016 11:36
--- NOTE | 2016-10-27 17:20 | PN ---
Date/Time of Note Date/Time of Note DATE: 10/27/16 TIME: 17:17 Assessment/Plan VTE Prophylaxis VTE Prophylaxis Intervention: SCD's Lines/Catheters IV [facility]ter [facility]from [facility] [place] Urinary Cath still in place: No Assessment/Plan Chief Complaint/Hosp Course ASSESSMENT AND PLAN: - Bilateral lower extremities edema and anasarca secondary to worsening renal failure. - Accelerated hypertension. Continue patient on Coreg, Norvasc, hydralazine. Dr. Casey is following patient in cardiology consultation. - Left posterior tibial vein thrombus. Continue warm compress. rRevaluate left lower extremity ultrasound in 2 days. - Diabetes mellitus type 2. hemoglobin A1c in 6.6. Continue 1800 ADA 2 g sodium , low fat, low cholesterol diet. Continue Lantus and NovoLog per moderate algorithm sliding scale. - Acute kidney injury on chronic kidney disease. Dr. Ulrich is following in nephrology consultation. - Obesity. Weight loss advised. - Iron deficiency anemia. Continue iron supplements. Continue heparin, follow deep venous thrombosis prophylaxis and Pepcid for peptic ulcer disease prophylaxis. Further recommendations based on clinical course. Plan of care discussed with Dr. Clark. Problems: Exam/Review of Systems Vital Signs Vitals Vital Signs Date Time Temp Pulse Resp B/P Pulse Ox O2 Delivery O2 Flow Rate FiO2 10/27/16 07:56 97.7 73 18 143/85 97 10/25/16 20:00 Room Air Intake and Output 10/26/16 10/26/16 10/27/16 15:00 23:00 07:00 Intake Total 3520 ml 560 ml Balance 3520 ml 560 ml Exam GENERAL: Well-developed, obese male currently is awake, alert. HEENT: Head is atraumatic, normocephalic. PERRLA. NECK: Supple, no cervical lymphadenopathy, no thyromegaly. CHEST: Lungs clear bilaterally. There is no rhonchi, wheezes, rales noted. CARDIOVASCULAR: Normal S1, S2. No murmurs, gallops, clicks, rubs noted. ABDOMEN: Round, soft, nondistended, nontender. Bowel sounds present. EXTREMITIES: The patient has bilateral lower extremities edema, 2+. The patient also has a left anterior foot intact blister. No rash, petechiae noted. NEUROLOGIC: Patient is awake, alert and oriented. SKIN: There is no rash, petechiae noted. NEUROLOGIC: The patient is awake, alert and oriented x4. Results Result Diagram: 10/27/16 0518 10/27/16 0518 Results 24 hrs Laboratory Tests Test 10/26/16 20:37 10/27/16 05:18 10/27/16 07:46 10/27/16 12:06 Bedside Glucose 181 140 140 White Blood Count 7.4 Red Blood Count 3.12 L Hemoglobin 9.1 L Hematocrit 29.5 L Mean Corpuscular Volume 94.6 Mean Corpuscular Hemoglobin 29.2 Mean Corpuscular Hemoglobin Concent 30.8 L Red Cell Distribution Width 13.0 Platelet Count 395 Mean Platelet Volume 8.7 Neutrophils % 37.9 L Lymphocytes % 50.8 Monocytes % 7.7 Eosinophils % 2.6 Basophils % 0.7 Nucleated Red Blood Cells % 0.0 Neutrophils # 2.8 Lymphocytes # 3.7 H Monocytes # 0.6 Eosinophils # 0.2 Basophils # 0.1 Nucleated Red Blood Cells # 0.0 Sodium Level 134 L Potassium Level 4.8 Chloride Level 104 Carbon Dioxide Level 29 Anion Gap 6 L Blood Urea Nitrogen 27 H Creatinine 2.36 H Glucose Level 128 Calcium Level 8.1 L Test 10/27/16 16:54 Bedside Glucose 188 Medications Medications Current Medications Aspirin (Halfprin) 81 mg DAILY PO Last administered on 10/27/16 08:14; Admin Dose 81 MG; Start 10/22/16 at 09:00 Citalopram Hydrobromide (Celexa) 20 mg DAILY PO Last administered on 10/27/16 08:13; Admin Dose 20 MG; Start 10/22/16 at 09:00 Ferrous Sulfate (Ferrous Sulfate (Ec)) 325 mg DAILY PO Last administered on 08:13; Admin Dose 325 MG; Start 10/22/16 at 09:00 Folic Acid (Folic Acid) 1 mg DAILY PO Last administered on 10/27/16 08:14; Admin Dose 1 MG; Start 10/22/16 at 09:00 Gabapentin (Neurontin) 600 mg TID PO Last administered on 10/27/16 12:20; Admin Dose 600 MG; Start 10/21/16 at 22:30 Hydralazine HCl (Apresoline) 10 mg Q4H PRN IV SBP>150 mm Hg Last administered on 10/23/16 20:49; Admin Dose 10 MG; Start 10/21/16 at 21:30 Insulin Glargine (Lantus) 10 unit QHS SC Last administered on 10/26/16 20:50; Admin Dose 10 UNIT; Start 10/21/16 at 22:30 Ondansetron HCl (Zofran Inj) 4 mg Q4H PRN IV NAUSEA AND/OR VOMITING; Start at 21:30 Acetaminophen (Tylenol Tab) 650 mg Q6H PRN PO PAIN LEVEL 1-3 OR FEVER; Start at 21:30 Acetaminophen/ Hydrocodone Bitart ([place] (5/325)) 1 tab Q6H PRN PO MODERATE PAIN LEVEL 4-6 Last administered on 10/27/16 16:49; Admin Dose 1 TAB; Start at 21:30 Hydromorphone HCl (Dilaudid) 1 mg Q4H PRN IV SEVERE PAIN LEVEL 7-10 Last administered on 10/27/16 15:19; Admin Dose 1 MG; Start 10/21/16 at 21:30 Docusate Sodium (Colace) 100 mg Q12H PRN PO CONSTIPATION Last administered on 08:34; Admin Dose 100 MG; Start 10/21/16 at 21:30 Magnesium Hydroxide (Milk Of Mag) 30 ml DAILY PRN PO CONSTIPATION; Start at 21:30 Bisacodyl (Dulcolax) 5 mg DAILY PRN PO CONSTIPATION Last administered on 09:53; Admin Dose 5 MG; Start 10/21/16 at 21:30 Bisacodyl (Dulcolax Supp) 10 mg DAILY PRN [place] CONSTIPATION; Start 10/21/16 at 21 :30 Sodium Biphosphate/ Sodium Phosphate (Fleet Enema) 133 ml DAILY PRN [place] CONSTIPATION; Start 10/21/16 at 21:30 Zolpidem Tartrate (Ambien) 5 mg QHS PRN PO SLEEP; Start 10/21/16 at 21:30 Heparin Sodium (Porcine) (Heparin (5000 Units/0.5 ml)) 5,000 unit Q12 SC Last administered on 10/23/16 08:23; Admin Dose 5,000 UNIT; Start 10/21/16 at 22:30 ; Status Future Hold Famotidine (Pepcid) 20 mg DAILY PO Last administered on 10/27/16 08:13; Admin Dose 20 MG; Start 10/23/16 at 09:00 Carvedilol (Coreg) 25 mg BID PO Last administered on 10/27/16 08:13; Admin Dose 25 MG; Start 10/23/16 at 21:00 Epoetin Jeremy (Epogen (Esrd)) 10,000 units Th@17 SC Last administered on 21:41; Admin Dose 10,000 UNITS; Start 10/23/16 at 20:07 Miscellaneous Information 1 ea NOTE XX ; Start 10/24/16 at 10:00 Glucose (Glutose) 15 gm Q15M PRN PO DECREASED GLUCOSE; Start 10/24/16 at 10:00 Glucose (Glutose) 22.5 gm Q15M PRN PO DECREASED GLUCOSE; Start 10/24/16 at 10: 00 Dextrose (D50w Syringe) 25 ml Q15M PRN IV DECREASED GLUCOSE; Start 10/24/16 at 10:00 Dextrose (D50w Syringe) 50 ml Q15M PRN IV DECREASED GLUCOSE; Start 10/24/16 at 10:00 Glucagon (Glucagen) 1 mg Q15M PRN IM DECREASED GLUCOSE; Start 10/24/16 at 10:00 Glucose (Glutose) 15 gm Q15M PRN BUCCAL DECREASED GLUCOSE; Start 10/24/16 at 10 :00 Hydralazine HCl (Apresoline) 50 mg TID PO Last administered on 10/27/16 12:26 ; Admin Dose 50 MG; Start 10/26/16 at 09:00 Amlodipine Besylate (Norvasc) 5 mg DAILY PO Last administered on 10/27/16 08: 13; Admin Dose 5 MG; Start 10/26/16 at 09:00 NI PADRON Oct 27, 2016 17:20
[2016-10-27] MEDS: DOCUSATE SODIUM 100 MG CAP PO PRN (18:51)
[2016-10-27 19:56] VITALS: BP 140/66; RESP 20
[2016-10-27] MEDS: INSULIN GLARGINE [LANtus] 3 ML PEN SC SCH (20:58)
[2016-10-28] MEDS: HYDROmorphONE 1 MG/ML SYG IV PRN (05:27)
[2016-10-28] MEDS: FUROSEMIDE 40 MG TAB PO SCH (05:28)
[2016-10-28 05:34] LABS: ADD SCAN DIFF NO
[2016-10-28 05:45] LABS: BASOPHIL # 0.1 10^3/ul (0.0-0.1); BASOPHILS % 0.7 % (0.0-2.0); EOSINOPHILS # 0.2 10^3/ul (0.0-0.5); EOSINOPHILS % 2.5 % (0.0-7.0); HEMATOCRIT 30.9 % (42.0-52.0); HEMOGLOBIN 9.5 g/dl (14.0-18.0); LYMPHOCYTES # 3.8 10^3/ul (0.8-2.9); LYMPHOCYTES % 46.9 % (15.0-51.0); MEAN CORPUSCULAR HEMOGLOBIN 28.7 pg (29.0-33.0); MEAN CORPUSCULAR HGB CONC 30.7 g/dl (32.0-37.0); MEAN CORPUSCULAR VOLUME 93.4 fl (82.0-101.0); MEAN PLATELET VOLUME 8.8 fl (7.4-10.4); MONOCYTE # 0.7 10^3/ul (0.3-0.9); MONOCYTES % 8.1 % (0.0-11.0); NEUTROPHIL # 3.3 10^3/ul (1.6-7.5); NEUTROPHILS % 41.4 % (39.0-77.0); PLATELET COUNT 400 10^3/UL (140-415); RED BLOOD COUNT 3.31 10^6/ul (4.70-6.10)
[2016-10-28 06:22] LABS: POTASSIUM 4.8 mmol/L (3.5-5.1)
[2016-10-28 06:25] LABS: CALCIUM 8.4 mg/dl (8.4-10.2); CREATININE 2.48 mg/dl (0.61-1.24)
--- NOTE | 2016-10-28 09:21 | CONS ---
Date/Time of Note Date/Time of Note DATE: 10/28/16 TIME: 09:16 Assessment/Plan Assessment/Plan Additional Assessment/Plan 1. Anasarca, likely secondary to worsening renal failure. 2. Acute kidney injury on chronic kidney disease secondary to prerenal azotemia and worsening diabetes mellitus. 3. Superficial vein thrombosis in left posterior tibial vein. 4. History of diabetes mellitus. 5. Hypertension with currently having accelerated hypertension, systolic blood pressure 186/103. PLAN: on lasix to 40mg BID,Cr 2.36 Renal US showed Echogenic kidneys, suggestive of medical renal disease. will hold off on ACEI/ARB due to Elevated Creatinine will follow up follow up with me in clinic in 2 weeks Consultation Date/Type/Reason Admit Date/Time Oct 21, 2016 at 22:03 Type of Consultation: NEPHROLGOY Referring Provider: IKE VALIENTE MD 24 HR Interval Summary Free Text/Dictation afebrile, BP stable, BP stable Exam/Review of Systems Vital Signs Vitals Vital Signs Date Time Temp Pulse Resp B/P Pulse Ox O2 Delivery O2 Flow Rate FiO2 10/27/16 19:56 98.3 71 20 140/66 99 10/25/16 20:00 Room Air Intake and Output 10/27/16 10/27/16 10/28/16 15:00 23:00 07:00 Intake Total 2800 ml 360 ml Balance 2800 ml 360 ml Exam GENERAL: Awake, alert, HEENT: Normal. Pupils equal, round, reactive to light and accommodation. Extraocular muscles are intact. NECK: Supple, no JVD, no lymphadenopathy. LUNGS: Clear to auscultation. No crackles, no wheezes. HEART: S1, S2, with regular rhythm, no murmur. ABDOMEN: Soft, nontender, nondistended. Bowel sounds are present. EXTREMITIES: 2+ pitting edema. No clubbing, no cyanosis. NEUROLOGICAL: Cranial nerves II through XII intact. No focal deficits. PSYCHIATRIC: Appropriate affect and mood. Results Result Diagram: 10/28/16 0520 10/28/16 0520 Results 24 hrs Laboratory Tests Test 10/27/16 12:06 10/27/16 16:54 10/27/16 20:51 10/28/16 05:20 Bedside Glucose 140 188 151 White Blood Count 8.0 Red Blood Count 3.31 L Hemoglobin 9.5 L Hematocrit 30.9 L Mean Corpuscular Volume 93.4 Mean Corpuscular Hemoglobin 28.7 L Mean Corpuscular Hemoglobin Concent 30.7 L Red Cell Distribution Width 13.0 Platelet Count 400 Mean Platelet Volume 8.8 Neutrophils % 41.4 Lymphocytes % 46.9 Monocytes % 8.1 Eosinophils % 2.5 Basophils % 0.7 Nucleated Red Blood Cells % 0.0 Neutrophils # 3.3 Lymphocytes # 3.8 H Monocytes # 0.7 Eosinophils # 0.2 Basophils # 0.1 Nucleated Red Blood Cells # 0.0 Sodium Level 135 Potassium Level 4.8 Chloride Level 105 Carbon Dioxide Level 27 Anion Gap 8 Blood Urea Nitrogen 34 H Creatinine 2.48 H Glucose Level 108 Calcium Level 8.4 EMILY OVIEDO MD Oct 28, 2016 09:21
[2016-10-30] MEDS ORDERED: METOCLOPRAMIDE 10 MG INJ ONE (09:19)
[2016-10-30] MEDS ORDERED: ONDANSETRON 4 MG INJ ONE (09:19)
[2016-10-30] MEDS ORDERED: MIDAZOLAM 1 MG/ML 2 ML INJ ONE (09:19)
[2016-10-30] MEDS ORDERED: PROPOFOL 0 ML ONE (09:19)
[2016-10-30] MEDS ORDERED: DEXAMETHASONE 4 MG/ML 1 ML INJ ONE (09:20)
[2016-10-30] MEDS ORDERED: FENTAnyl 50 MCG/ML VIAL ONE (09:21)
--- NOTE | 2016-11-02 20:28 | DS ---
DATE OF ADMISSION: 10/21/2016 DATE OF DISCHARGE: 10/28/2016 FINAL DIAGNOSES: Before the patient left against medical advice 1. Bilateral lower extremity edema and anasarca secondary to worsening renal failure. 2. Accelerated hypertension. 3. Left posterior tibial vein thrombosis. 4. Diabetes mellitus type 2. 5. Acute kidney injury on chronic kidney disease. 6. Obesity. 7. Iron deficiency anemia. BRIEF HISTORY: The patient is a 46-year-old gentleman with past medical history positive for hypert ension, diabetes, hyperlipidemia. The patient was following with Dr. Garcia, cardiology, in [facility] and was found to have a blood pressure systolic above 200 and elevated creatinine and patient was sent for evaluation to [facility] Emergency Room. The patient also complains of the chest pain and bilateral lower extremity edema. In evaluation in emergency room the patient found to have thrombus in the left anterior tibial vein. The patient was getting Dilaudid and Lasix and admitted for further evaluation and management. HOSPITAL COURSE: The patient was evaluated by Dr. Casey in cardiology consultation. The patient had hypertensive urgency on admission. The patient's antihypertensives were titrated by cardiology a nd the patient was closely monitored. The patient was evaluated by Dr. Ulrich in nephrology consulta tion. The patient underwent a renal ultrasound which revealed echogenic kidneys suggestive of medic al renal disease, no hydronephrosis, normal appearance of the urinary bladder. The patient also com [place] of bilateral lower extremity swelling and pain and was given Dilaudid p.r.n. and [place] p.r.n. for pain. The patient was also given Lantus and NovoLog for diabetes. Blood sugar was closely mon itored. The patient will be given heparin for superficial vein thrombosis. The patient was also st arted on iron supplements and Epogen for anemia. The patient eloped at 8:45 on 10/28/2016. Dictated By: NI PADRON COLOR CORRECTOR for IKE VALIENTE MD SR/NTS Conf#: [id number] DID#: [id number]
== END 2016-10-28 08:35 | disposition left against medical advice (07) | DRG 683 ==
LOC: E/R 18:11 → MS2 22:03
PROVIDERS: ADMIT Internal Medicine; ATTEND Internal Medicine
PROC: 30233N1 Transfusion of Nonautologous Red Blood Cells into Peripheral Vein, Percutaneous Approach (ICD-10-PCS; principal; 2016-10-23)
DX: N17.9 Acute kidney failure, unspecified (principal); I82.442 Acute embolism and thrombosis of left tibial vein; E11.22 Type 2 diabetes mellitus with diabetic chronic kidney disease; I27.2 Other secondary pulmonary hypertension; I16.1 Hypertensive emergency; D50.9 Iron deficiency anemia, unspecified; R60.0 Localized edema; I12.9 Hypertensive chronic kidney disease with stage 1 through stage 4 chronic kidney disease, or unspecified chronic kidney disease; N18.9 Chronic kidney disease, unspecified; E78.5 Hyperlipidemia, unspecified; E66.9 Obesity, unspecified; R39.2 Extrarenal uremia; I34.0 Nonrheumatic mitral (valve) insufficiency; I07.1 Rheumatic tricuspid insufficiency; I37.1 Nonrheumatic pulmonary valve insufficiency; Z68.36 Body mass index [BMI] 36.0-36.9, adult; Z79.82 Long term (current) use of aspirin; Z79.4 Long term (current) use of insulin; Z87.891 Personal history of nicotine dependence
CPT/HCPCS: 36415; 36430; 71010; 76775; 80048; 80053; 80061; 81003; 82270; 82306; 82550; 82553; 82570; 82607; 82728; 82746; 82962; 83036; 83540; 83735; 83970; 84300; 84484; 84560; 85025; 85045; 85610; 85730; 86850; 86900; 86901; 86920; 87081; 89190; 93005; 93970; 96372; 96374; 96375; 97116; 97162; 97530; J1940; J0360; J0886; J1170; J1644; J1815; J3475; J7040; P9016